=== PATIENT | male | born 1945 | race Caucasian/White ===

== ENCOUNTER 2018-11-05 02:02 | Inpatient (IN) | payer OTHER ==
[~2018-11-05] VITALS: Ht 182.9 cm; Wt 83.9 kg
[2018-11-05] MEDS ORDERED: CHOL10003 PO (02:23)
[2018-11-05] MEDS ORDERED: SODI650T PO (02:23)
[2018-11-05] MEDS ORDERED: FAMO10TA69 PO (02:23)
[2018-11-05] MEDS ORDERED: BACL10TA PO (02:23)
[2018-11-05] MEDS ORDERED: ASPI-612 PO (02:23)
[2018-11-05] MEDS ORDERED: CYAN10005 PO (02:23)
[2018-11-05] MEDS ORDERED: TRAM50TA PO (02:23)
[2018-11-05] MEDS ORDERED: HYDR20TA PO (02:23)
[2018-11-05] MEDS ORDERED: HYDR10TA66 PO (02:23)
[2018-11-05] MEDS ORDERED: POLY17PO5 PO (02:23)
[2018-11-05] MEDS ORDERED: NITR0.4T22 SL (02:23)
[2018-11-05] MEDS ORDERED: ACET500T68 PO (02:23)
[2018-11-05 03:27] VITALS: BP 146/68
[2018-11-05] MEDS ORDERED: METHYL SALICYLATE/MENTHOL TOPICAL OINTMENT 29GM TUBE. TP PRN (03:45)
[2018-11-05] MEDS ORDERED: ACETAMINOPHEN 325 MG TABLET PO PRN (03:45)
[2018-11-05] MEDS ORDERED: MAG HYDROX/AL HYDROX/SIMETH 30 ML ORAL.SUSP PO PRN (03:45)
[2018-11-05] MEDS ORDERED: MAGNESIUM HYDROXIDE 2,400 MG/30 ML ORAL.SUSP. PO PRN (03:45)
[2018-11-05] MEDS ORDERED: NITROGLYCERIN SUBLINGUAL 0.4 MG BOTTLE OF 25. SL PRN (04:15)
--- NOTE | 2018-11-05 04:28 | NUR ---
Admission Note with Justification for Admission to [facility] Patient admitted to [facility] for protective oversight for emergency stabilization of acute psychiatric crisis. Pt admitted from: [facility] ER Mode of arrival: EMS Accompanied By: EMS Precipitating behaviors that initiated intake and admission: Patient made SI statements that he was going to cut his throat with a piece of glass. Description of failure of out patient attempts at stabilization in previous setting list behavior and medication trials: Patient brought to ER Behaviors and assessment findings upon admission: Patient is calm and cooperative but very hard of hearing. The patient is alert and oriented to self, date, hospital and situation and is currently suicidal. The patient is currently sleeping in his room near the nurses station. Plan: Admit for protective oversight for adjustment and stabilization of medications, behaviors and mood. Intense treatment regimen including groups, medication adjustments, therapy, consistent regimen for ADL's, self care, and sleep hygiene. Daily monitoring by Inpatient staff, Psychiatry, and Medical Physician.
[2018-11-05 07:55] LABS: BASO # 0.1 x10^3/uL (0.0-0.2); BASO % 1 % (0-3); EOS # 0.3 x10^3/uL (0.0-0.7); EOS % 4 % (0-3); HEMATOCRIT 31.9 % (39.0-53.0); HEMOGLOBIN 10.8 g/dL (13.0-17.5); LYMPH # 3.9 x10^3/uL (1.0-4.8); LYMPH % 49 % (24-48); MEAN CORPUSCULAR HEMOGLOBIN 33 pg (25-35); MEAN CORPUSCULAR HGB CONC 34 g/dL (31-37); MEAN CORPUSCULAR VOLUME 96 fL (79-100); MONO # 0.7 x10^3/uL (0.0-1.1); MONO % 9 % (0-9); NEUT % 38 % (31-73); PLATELET COUNT 198 x10^3/uL (140-400); RED BLOOD COUNT 3.32 x10^6/uL (4.30-5.70); RED CELL DISTRIBUTION WIDTH 14.3 % (11.5-14.5); WHITE BLOOD COUNT 7.9 x10^3/uL (4.0-11.0)
[2018-11-05 08:25] LABS: ALBUMIN 3.1 g/dL (3.4-5.0); ALBUMIN/GLOBULIN RATIO 1.1 (1.0-1.7); CALCIUM 9.2 mg/dL (8.5-10.1); CREATININE 1.3 mg/dL (0.7-1.3); MAGNESIUM 2.1 mg/dL (1.8-2.4); POTASSIUM 3.6 mmol/L (3.5-5.1); TOTAL BILIRUBIN 0.4 mg/dL (0.2-1.0)
[2018-11-05] MEDS: CHOLECALCIFEROL (VITAMIN D3) 1,000 UNIT TABLET PO SCH (08:36)
[2018-11-05] MEDS: ACETAMINOPHEN 500 MG TABLET PO SCH ×3 (08:36→16:55)
[2018-11-05] MEDS: CYANOCOBALAMIN (VITAMIN B-12) 1,000 MCG TABLET. PO SCH (08:36)
[2018-11-05] MEDS: POLYETHYLENE GLYCOL 3350 17 GM PACKET. PO SCH (08:36)
[2018-11-05] MEDS: FAMOTIDINE 20 MG TABLET PO SCH (08:36)
[2018-11-05] MEDS: BACLOFEN 10 MG TABLET PO SCH ×3 (08:36→16:55)
[2018-11-05] MEDS: ASPIRIN ENTERIC COATED 81 MG TABLET.DR. PO SCH (08:36)
[2018-11-05] MEDS ORDERED: BACLOFEN 10 MG TABLET ONE ×3 (09:00)
[2018-11-05] MEDS: SODIUM BICARBONATE 650 MG TABLET PO SCH ×2 (09:12→20:14)
[2018-11-05] MEDS: HYDROCORTISONE 10 MG TABLET PO SCH ×2 (09:13→16:02)
[2018-11-05 13:17] LABS: THYROID STIM HORMONE (TSH) 1.254 uIU/mL (0.358-3.740)
--- NOTE | 2018-11-05 13:17 | NUR ---
Dakotah has [facility] Medicare replacement insurance. Call placed to [facility], spoke to Lorena Stevens, who indicated that it did not matter that [facility] was out of network. Lorena e-mailed an admission form for this worker to complete. This worker completed form after meeting with Dakotah. Faxed completed form back to Lorena for review. Lorena's direct phone number is [phone] ext [phone], fax is [phone]. Lorena indicated that the form will be reviewed and that this worker will be contacted with authorization and information about when next concurrent review is due. Call reference number is [id number]. Awaiting return phone call.
[2018-11-05 15:47] VITALS: BP 111/68
--- NOTE | 2018-11-05 16:12 | NUR ---
Received e-mail from Lorena at [facility] indicating that Dakotah is approved thru 11/09/18, next review due on 11/10/18. Authorization number is [id number].
--- NOTE | 2018-11-05 18:19 | NUR ---
Patient has been calm, cooperative, appropriate, and med-compliant. Patient is hard of hearing and hears better in his left ear. Pt has multiple small scabs on bilateral feet and ankles from wheelchair. Pt is not up-to-date on flu shot d/t allergy to immunization, per pt's DPOA. Pt has a hacking cough with scant phlegm production. Pt stated, "it takes a while to get the phlegm up."
--- NOTE | 2018-11-05 18:21 | NUR ---
Behavior Intervention Response and Plan: BIRP Note: Behavior: Assumed Care of patient, patient located in Patient Room at shift change. Patient exhibited the following behavior Calm, Compliant, Cooperative. Brief assessment on rounds of vital signs, medication needs, lab studies, and pain. Treatment plan problems: alteration in thought process and fall risk. Intervention: Patient assessed and the following interventions initiated safety checks 15 Minute Checks Cognitive Assessment , Head to toe Assessment , Medications. Response: After interactions and interventions patient responded in the following manner, Cooperative , Appropriate ,Calm. Continue to assess behaviors and condition will continue to monitor throughout the shift as needed. Patient educated on ADL's, and hand hygiene. Plan: Continue to monitor Master Treatment Plan for patient's progress toward short term goals of No harm To self/ others, Improved Mood, mcfp goals to return to previous living setting vs placement. Continue to assess patient for changes in above assessment. Monitor for medication needs, pain, and safety concerns. Hourly rounding performed to ensure safe environment.
[2018-11-05 19:07] LABS: THYROXINE 5.8 ug/dL (4.5-12.0)
--- NOTE | 2018-11-05 19:49 | HP ---
ADMIT DATE: 11/05/2018 PSYCHIATRIC ADMISSION HISTORY/EVALUATION This note covers elements not covered in my initial note of 11/05/2018. IDENTIFYING DATA: The patient is a 73-year-old male referred to us from [facility] from where he was referred to [facility] Emergency Room on account of voicing suicidal ideation with a plan to break off a light bulb and cut his throat. The patient reportedly had been increasingly depressed, somewhat more confused. The patient stated he has been depressed for some time because of his mother being . He has had prior suicidal ideation as well and according to the family, the patient has been depressed and had intermittent suicidal ideation for a long time. He was deemed to be dangerous at the facility, sent to the Emergency Room, felt to be a danger to himself there and then referred to us for inpatient psychiatric stabilization. CHIEF COMPLAINT: "I live at the [facility]. Yes, I had thoughts. Nothing to live for." HISTORY OF PRESENT ILLNESS: The patient has a history of major depressive disorder. This has been recurrent with intermittent suicidal ideation, reflective additionally of personality disorder. He has also had some short-term memory deficits. Suicidal ideation had become more intense recently with the plan noted above resulting in this referral. No clear history of bipolar disorder. Hospitalization was facilitated by Mary Copeland, his niece, who is his DPOA. PAST PSYCHIATRIC HISTORY: As above. MEDICAL HISTORY: Positive for muscle spasms, adrenocortical insufficiency, nicotine dependence. CODE STATUS: DNR. DIET: Regular. Ambulates in wheelchair. UA is negative. CURRENT PSYCHOTROPICS: Negative. FAMILY HISTORY: Noncontributory. SOCIAL HISTORY: No history of alcohol, drug abuse, physical, sexual or elder abuse history is noted. The patient resides at the [facility]. DRUG ALLERGIES: PENICILLIN AND ERYTHROMYCIN. REACTION TO HOSPITALIZATION: The patient accepting of it. ASSETS: Supportive family and niece, who is his DPOA. MENTAL STATUS EXAM: The patient was seen individually in the evening of 11/05/2018. Eye contact is fair. He is quite anxious, mood is depressed, anxious. Affect is mood congruent. Speech, low in volume, difficult to understand, rapid at times. He is fixated complaining of muscle spasm and backache, somewhat obsessive. No active plans to hurt himself as I questioned him closely this evening. Attention span is short. Language function intact. Intellect average. Insight fair. Judgment intact to standard questioning. LABORATORY DATA: Reviewed. IMPRESSION: Major depressive disorder, recurrent with suicidal ideation latter in partial remission; anxiety disorder, unspecified; cognitive disorder, unspecified. Rest as above. PLAN: Admit to Geropsychiatry Unit at [facility]. I will see the patient daily individually from a psychiatric standpoint, medical followup with Dr. Temple. Observe the patient's baseline. We will use trazodone 50 mg at bedtime p.r.n. insomnia, may repeat x 1 and start an antidepressant post baseline assessment. We will defer to Dr. Temple for the muscle spasms and back pain. He had been called by the nursing staff earlier in the morning, at night to review the patient's referral information for admission. MAN Kristine BOYER MD DR: UDAY/radha JOB#: [id number] / [id number]
[2018-11-05] MEDS ORDERED: traZODone 50 MG TABLET. PO PRN (20:30)
[2018-11-05] MEDS: traZODone 50 MG TABLET. PO SCH (20:47)
[2018-11-05] MEDS: CYCLOBENZAPRINE 10 MG TABLET. PO PRN (20:47)
--- NOTE | 2018-11-05 21:08 | NUR ---
Pt sitting up in w/c in the day room at shift change. Pt a/o, calm, and pleasant. Pt c/o back spasms and was given PRN Flexeril as ordered; pt also has c/o insomnia and reports that he takes something for this at his facility but is unable to recall the name of the medication. New order for Trazodone received from Dr. Gutierrez. Pt cooperative with assessment and compliant with medications.
--- NOTE | 2018-11-05 21:21 | CONS ---
DATE OF CONSULTATION: 11/05/2018 REASON FOR CONSULTATION: Medical management. HISTORY OF PRESENT ILLNESS: The patient is a 73-year-old male patient, a resident at [facility] who apparently presented to the Emergency Room of [facility] with suicidal ideation. He stated that when he was at his assisted living residence, he had suicidal thoughts of breaking light bulb and slitting his throat. He stated that his mother is and he wants to go and be with her. He denied having any suicidal ideation in the past; however, upon speaking with his employment law attorney, she states that he has had behavior like this in the past multiple times. He has threatened to commit suicide many times and has never acted out on his plans. He denied any plans. He was evaluated in the Emergency Room, was [facility] for inpatient psychiatric stabilization. He is very hard of hearing; however, when I questioned him, he denied any complaint. However, he continues to have the suicidal ideation and would like to slit his throat according to him. PAST MEDICAL HISTORY: Significant for Boone's disease, gastroesophageal reflux disease, anemia as well as chronic back pain. PAST SURGICAL HISTORY: Unremarkable. FAMILY HISTORY: Unremarkable. SOCIAL HISTORY: He is a resident at [facility]. ALLERGIES: He is allergic to PENICILLIN and ERYTHROMYCIN. MEDICATIONS: He is currently on baclofen 5 mg 3 times a day, nitroglycerin 0.4 mg sublingual every 5 minutes, aspirin 81 mg once a day, tramadol 50 mg every 6 hours, acetaminophen 1000 mg 3 times a day, sodium bicarbonate 650 mg twice a day. He is also on polyethylene glycol 17 g daily, famotidine 10 mg once a day, hydrocortisone 10 mg daily in the afternoon and hydrocortisone 20 mg in the morning for his Boone disease, cyanocobalamin 1000 mcg tablet once a day and vitamin D 2000 international units once a day. PHYSICAL EXAMINATION: GENERAL: When I saw him this afternoon, he was sitting comfortably in his wheelchair, in no apparent distress. He was somewhat pale, but no jaundice, cyanosis, or thyromegaly. No jugular venous distension. No lower limb edema. VITAL SIGNS: His heart rate was 82, blood pressure is 146/68, temperature was 97.5, respiratory rate 20, and oxygen saturation 100%. HEAD, EYES, EAR, NOSE, AND THROAT: Showed normocephalic, atraumatic. NECK: Supple. HEART: Showed normal first and second heart sounds. No gallop, rub or murmur. CHEST: Clear to auscultation. No crepitation or rhonchi. ABDOMEN: Slightly distended, soft, nontender. NEUROLOGIC: He is very hard of hearing, worse on the right than left. All other cranial nerves are intact. EXTREMITIES: He moves extremities without difficulty. Apparently, he is able to walk and sometimes for attention seeking, he uses his wheelchair. LABORATORY DATA: Showed a white cell count of 7900, hemoglobin 11, hematocrit 32, MCV 96, and platelet count of 198,000, but the manual differential showed that there is 38% neutrophils, 49% lymphocytes, 9% monocytes. His serum sodium was 143, potassium 3.6, chloride 107, bicarbonate 28, anion gap of 8, BUN 21, creatinine 1.3, estimated GFR was 54 mL per minute. His glucose was 84, calcium was 9.2, magnesium 2.1. Total bilirubin, AST, ALT, alkaline phosphatase were normal. Total protein was 6, albumin 3.1. ASSESSMENT AND PLAN: In summary, this is a 73-year-old male patient, a resident at [facility], who was seen initially at [facility] Emergency Room with suicidal ideation. He stated that he thought of breaking a light bulb and slitting his throat. Apparently, he has had this behavior before many times and never acted out on his plans. Medically, he is known to have gastroesophageal reflux disease, chronic back pain as well as Boone's disease. His vital signs and all his lab work seemed to be well within acceptable range. I would also obviously follow all the lab work that are still pending and make any necessary recommendation. He does have mild lymphocytosis the significance of which is not clear to me as his total white cell count is within normal range of 7900, although a leukemic leukemia can be also presented like that. Thank you, Dr. Gutierrez, for allowing me to participate in the care of this patient. FAVIOLA SZYMANSKI MD DR: JOSE/radha JOB#: [id number] / [id number]
--- NOTE | 2018-11-05 21:47 | PDOC ---
Exam Note: Barrera Note: Please also refer to the separate dictated note~for this date of service dictated separately.~Patient seen individually. Discussed the patient with Nursing staff reviewed the chart.~Reviewed interim history and current functioning. Reviewed vital signs,~Labs/ Radiology~and current medications noted below. Continue current treatment with the changes noted in the dictated addendum note Assessment: Vital Signs: Vital Signs Date Time Temp Pulse Resp B/P (MAP) Pulse Ox O2 Delivery O2 Flow Rate FiO2 11/05/18 15:47 97.2 72 18 111/68 (82) 96 Room Air Labs: Laboratory Tests Test 11/05/18 07:20 White Blood Count 7.9 x10^3/uL (4.0-11.0) Red Blood Count 3.32 x10^6/uL (4.30-5.70) L Hemoglobin 10.8 g/dL (13.0-17.5) L Hematocrit 31.9 % (39.0-53.0) L Mean Corpuscular Volume 96 fL (79-100) Mean Corpuscular Hemoglobin 33 pg (25-35) Mean Corpuscular Hemoglobin Concent 34 g/dL (31-37) Red Cell Distribution Width 14.3 % (11.5-14.5) Platelet Count 198 x10^3/uL (140-400) Neutrophils (%) (Auto) 38 % (31-73) Lymphocytes (%) (Auto) 49 % (24-48) H Monocytes (%) (Auto) 9 % (0-9) Eosinophils (%) (Auto) 4 % (0-3) H Basophils (%) (Auto) 1 % (0-3) Neutrophils # (Auto) 3.0 x10^3uL (1.8-7.7) Lymphocytes # (Auto) 3.9 x10^3/uL (1.0-4.8) Monocytes # (Auto) 0.7 x10^3/uL (0.0-1.1) Eosinophils # (Auto) 0.3 x10^3/uL (0.0-0.7) Basophils # (Auto) 0.1 x10^3/uL (0.0-0.2) Sodium Level 143 mmol/L (136-145) Potassium Level 3.6 mmol/L (3.5-5.1) Chloride Level 107 mmol/L (98-107) Carbon Dioxide Level 28 mmol/L (21-32) Anion Gap 8 (6-14) Blood Urea Nitrogen 21 mg/dL (8-26) Creatinine 1.3 mg/dL (0.7-1.3) Estimated GFR (Cockcroft-Gault) 54.0 BUN/Creatinine Ratio 16 (6-20) Glucose Level 84 mg/dL (70-99) Calcium Level 9.2 mg/dL (8.5-10.1) Magnesium Level 2.1 mg/dL (1.8-2.4) Iron Level 46 ug/dL (65-175) L Total Iron Binding Capacity 283 ug/dL (250-450) Iron Saturation 16 % (15-34) Total Bilirubin 0.4 mg/dL (0.2-1.0) Aspartate Amino Transferase (AST) 30 U/L (15-37) Alanine Aminotransferase (ALT) 39 U/L (16-63) Alkaline Phosphatase 56 U/L (46-116) Total Protein 6.0 g/dL (6.4-8.2) L Albumin 3.1 g/dL (3.4-5.0) L Albumin/Globulin Ratio 1.1 (1.0-1.7) Triglycerides Level 241 mg/dL (0-150) H Cholesterol Level 156 mg/dL (0-200) LDL Cholesterol, Calculated 63 mg/dL (0-100) VLDL Cholesterol, Calculated 48 mg/dL (0-40) H Non-HDL Cholesterol Calculated 111 mg/dL (0-129) HDL Cholesterol 45 mg/dL (40-60) Cholesterol/HDL Ratio 3.0 25-Hydroxy Vitamin D Total 32.4 ng/mL (30-100) Thyroid Stimulating Hormone (TSH) 1.254 uIU/mL (0.358-3.740) Thyroxine (T4) 5.8 ug/dL (4.5-12.0) Total Triiodothyronine (TT3) 108 ng/dL (71-180) Treponema pallidum Antibody Nonreactive (Nonreactive) Current Medications: Meds: Current Medications Acetaminophen (Tylenol) 650 mg PRN Q6HRS PRN PO PAIN / TEMP; Start 11/05/18 at 03:45; Status Cancel Multi-Ingredient Ointment (Analgesic [place]) 1 rambo PRN QID PRN TP MUSCLE PAIN; Start 11/05/18 at 03:45 Al Hydroxide/Mg Hydroxide (Mylanta Plus Xs) 15 ml PRN AFTMEALHC PRN PO DYSPEPSIA; Start 11/05/18 at 03:45 Magnesium Hydroxide (Milk Of Magnesia) 2,400 mg PRN QHS PRN PO CONSTIPATION; Start 11/05/18 at 03:45 Vitamin D (Vitamin D3) 2,000 unit DAILY PO Last administered on 11/05/18at 08:36 ; Start 11/05/18 at 09:00 Cyanocobalamin (Vitamin B-12) 1,000 mcg DAILY08 PO Last administered on at 08:36; Start 11/05/18 at 08:00 Nitroglycerin (Nitrostat) 0.4 mg PRN Q5MIN PRN SL CHEST PAIN; Start 11/05/18 at 04:15 Tramadol HCl (Ultram) 50 mg PRN Q6HRS PRN PO PAIN; Start 11/05/18 at 04:15 Acetaminophen (Tylenol) 1,000 mg TIDWMEALS PO Last administered on 11/05/18at 16: 55; Start 11/05/18 at 08:00 Aspirin (Aspirin Enteric Coated) 81 mg DAILYWBKFT PO Last administered on 08:36; Start 11/05/18 at 08:00 Baclofen (Lioresal) 5 mg TIDWMEALS PO Last administered on 11/05/18 16:55; Start 11/05/18 at 08:00 Famotidine (Pepcid) 20 mg DAILY PO Last administered on 11/05/18at 08:36; Start 11/05/18 at 09:00 Hydrocortisone (Cortef) 15 mg DAILY16 PO Last administered on 11/05/18 16:02; Start 11/05/18 at 16:00 Hydrocortisone (Cortef) 20 mg DAILYWBKFT PO Last administered on 11/05/18at 09:13 ; Start 11/05/18 at 08:00 Polyethylene Glycol (miraLAX) 17 gm DAILY08 PO Last administered on 11/05/18 08 :36; Start 11/05/18 at 08:00 Sodium Bicarbonate 650 mg BID PO Last administered on 11/05/18at 20:14; Start 11/05/18 at 09:00 Cyclobenzaprine HCl (Flexeril) 10 mg PRN TID PRN PO MUSCLE SPASMS Last administered on 11/05/18at 20:47; Start 11/05/18 at 20:15 Trazodone HCl (Desyrel) 50 mg QHS PO Last administered on 11/05/18at 20:47; Start 11/05/18 at 21:00 Trazodone HCl (Desyrel) 50 mg PRN QHS PRN PO INSOMNIA; Start 11/05/18 at 20:30 Active Scripts Active Reported Tramadol Hcl (Tramadol HCl) 50 Mg Tablet 50 Mg PO PRN Q6HRS PRN NITROGLYCERIN SubLingual (Nitroglycerin) 0.4 Mg Tab.subl 0.4 Mg SL PRN Q5MIN PRN Vitamin D3 (Cholecalciferol (Vitamin D3)) 1,000 Unit Tablet 2,000 Unit PO DAILY Vitamin B-12 (Cyanocobalamin (Vitamin B-12)) 1,000 Mcg Tablet 1,000 Mcg PO DAILY08 Sodium Bicarbonate 650 Mg Tablet 1 Tab PO BID Miralax (Polyethylene Glycol 3350) 17 Gm Powd.pack 17 Gm PO DAILY08 Hydrocortisone 20 Mg Tablet 20 Mg PO DAILY08 Hydrocortisone 10 Mg Tablet 15 Mg PO DAILY16 Famotidine 10 Mg Tablet 10 Mg PO DAILY Baclofen 10 Mg Tablet 5 Mg PO TID AT 04/20/2000 Acetaminophen 500 Mg Tablet 1,000 Mg PO TIDWMEALS Aspirin Ec (Aspirin) 81 Mg Tablet. 81 Mg PO DAILY I have reviewed the current psychotropics carefully including drug interactions. Risk benefit ratio favors no change other than as noted in my dictated progress note. Diagnosis: Problems: (1) Anxiety disorder (2) Mild cognitive impairment (3) Major depressive disorder, recurrent episode (4) Impulse control disorder RON BOYER MD Nov 05, 2018 21:47
[2018-11-05 23:07] LABS: HEMOGLOBIN A1C 5.4 % (4.8-5.6)
[2018-11-06 05:46] VITALS: BP 94/57
[2018-11-06] MEDS: ACETAMINOPHEN 500 MG TABLET PO SCH ×3 (08:44→17:07)
[2018-11-06] MEDS: POLYETHYLENE GLYCOL 3350 17 GM PACKET. PO SCH (08:44)
[2018-11-06] MEDS: HYDROCORTISONE 10 MG TABLET PO SCH ×2 (08:44→16:16)
[2018-11-06] MEDS: SODIUM BICARBONATE 650 MG TABLET PO SCH ×2 (08:44→19:10)
[2018-11-06] MEDS: BACLOFEN 10 MG TABLET PO SCH ×3 (08:44→17:07)
[2018-11-06] MEDS: CYANOCOBALAMIN (VITAMIN B-12) 1,000 MCG TABLET. PO SCH (08:44)
[2018-11-06] MEDS: FAMOTIDINE 20 MG TABLET PO SCH (08:44)
[2018-11-06] MEDS: CHOLECALCIFEROL (VITAMIN D3) 1,000 UNIT TABLET PO SCH (08:44)
[2018-11-06] MEDS: ASPIRIN ENTERIC COATED 81 MG TABLET.DR. PO SCH (08:44)
[2018-11-06] MEDS ORDERED: BACLOFEN 10 MG TABLET ONE ×3 (09:00)
[2018-11-06] MEDS: traMADol 50 MG TABLET PO PRN (10:55)
--- NOTE | 2018-11-06 13:21 | NUR ---
Patient was calm, cooperative, and appropriate for morning meds and assessment. Pt ate breakfast and lunch in dining room. At the end of lunch, pt was in dining room and started throwing up small portions mixed with larger volumes of saliva and mucus. Pt denied nausea, dizziness, and any stomach discomfort. Patient stated, "I don't feel good. I just need to go lie down in bed." Patient was transported to the east hallway in his wheelchair right outside the nurse's station windows to be observed for vomiting. Patient vomited small amounts of mucus two more times in the hallway. Pt's vital signs were BP 102/61, Temp 97.4, 100% O2, 84 HR, and 20 breaths/minute. Patient continued to deny feeling nauseous, dizzy, or having stomach discomfort. Patient was allowed to lie down in bed after not having vomited for 20 minutes. Patient's room is directly next to nurse's station with door open and pt can be observed continuously.
[2018-11-06] MEDS ORDERED: ONDANSETRON ODT 4 MG TAB.RAPDIS PO PRN (14:15)
[2018-11-06 15:31] VITALS: BP 140/81
--- NOTE | 2018-11-06 15:32 | RAD ---
Abdomen AP 11/06/2018. Reason for exam: Nausea and vomiting. Pain. Gas is seen mostly through the colon. There is no evidence of obstruction. There is moderate stool present. No abnormal masses or gas collections are seen. IMPRESSION: Moderate colonic stool. No apparent bowel obstruction. Electronically signed by: Celso Velasquez Jr., MD (11/06/2018 3:29 PM) [facility] [place]
[2018-11-06] MEDS: CYCLOBENZAPRINE 10 MG TABLET. PO PRN (16:16)
[2018-11-06] MEDS: traZODone 50 MG TABLET. PO SCH (19:10)
--- NOTE | 2018-11-06 21:49 | PDOC ---
Exam Note: Barrera Note: Please also refer to the separate dictated note~for this date of service dictated separately.~Patient seen individually. Discussed the patient with Nursing staff reviewed the chart.~Reviewed interim history and current functioning. Reviewed vital signs,~Labs/ Radiology~and current medications noted below. Continue current treatment with the changes noted in the dictated addendum note Assessment: Vital Signs: Vital Signs Date Time Temp Pulse Resp B/P (MAP) Pulse Ox O2 Delivery O2 Flow Rate FiO2 11/06/18 15:31 97.1 91 16 140/81 (100) 97.0 11/06/18 05:46 100 Room Air I&O Intake and Output 11/06/18 06:59 Intake Total 720 ml Balance 720 ml Intake Oral 720 ml Current Medications: Meds: Current Medications Acetaminophen (Tylenol) 650 mg PRN Q6HRS PRN PO PAIN / TEMP; Start 11/05/18 at 03:45; Status Cancel Multi-Ingredient Ointment (Analgesic [place]) 1 rambo PRN QID PRN TP MUSCLE PAIN; Start 11/05/18 at 03:45 Al Hydroxide/Mg Hydroxide (Mylanta Plus Xs) 15 ml PRN AFTMEALHC PRN PO DYSPEPSIA; Start 11/05/18 at 03:45 Magnesium Hydroxide (Milk Of Magnesia) 2,400 mg PRN QHS PRN PO CONSTIPATION; Start 11/05/18 at 03:45 Vitamin D (Vitamin D3) 2,000 unit DAILY PO Last administered on 11/06/18at 08:44 ; Start 11/05/18 at 09:00 Cyanocobalamin (Vitamin B-12) 1,000 mcg DAILY08 PO Last administered on at 08:44; Start 11/05/18 at 08:00 Nitroglycerin (Nitrostat) 0.4 mg PRN Q5MIN PRN SL CHEST PAIN; Start 11/05/18 at 04:15 Tramadol HCl (Ultram) 50 mg PRN Q6HRS PRN PO PAIN Last administered on at 10:55; Start 11/05/18 at 04:15 Acetaminophen (Tylenol) 1,000 mg TIDWMEALS PO Last administered on 11/06/18at 17: 07; Start 11/05/18 at 08:00 Aspirin (Aspirin Enteric Coated) 81 mg DAILYWBKFT PO Last administered on 08:44; Start 11/05/18 at 08:00 Baclofen (Lioresal) 5 mg TIDWMEALS PO Last administered on 11/06/18 17:07; Start 11/05/18 at 08:00 Famotidine (Pepcid) 20 mg DAILY PO Last administered on 11/06/18 08:44; Start 11/05/18 at 09:00 Hydrocortisone (Cortef) 15 mg DAILY16 PO Last administered on 11/06/18 16:16; Start 11/05/18 at 16:00 Hydrocortisone (Cortef) 20 mg DAILYWBKFT PO Last administered on 11/06/18 08:44 ; Start 11/05/18 at 08:00 Polyethylene Glycol (miraLAX) 17 gm DAILY08 PO Last administered on 11/06/18 08 :44; Start 11/05/18 at 08:00 Sodium Bicarbonate 650 mg BID PO Last administered on 11/06/18 19:10; Start 11/05/18 at 09:00 Cyclobenzaprine HCl (Flexeril) 10 mg PRN TID PRN PO MUSCLE SPASMS Last administered on 11/06/18 16:16; Start 11/05/18 at 20:15 Trazodone HCl (Desyrel) 50 mg QHS PO Last administered on 11/06/18 19:10; Start 11/05/18 at 21:00 Trazodone HCl (Desyrel) 50 mg PRN QHS PRN PO INSOMNIA; Start 11/05/18 at 20:30 Ondansetron HCl (Zofran Odt) 4 mg PRN Q4HRS PRN PO NAUSEA/VOMITING; Start at 14:15 Baclofen (Lioresal) 5 mg STK-MED ONCE .ROUTE ; Start 11/05/18 at 09:00; Stop 11/06 at 18:01; Status DC Baclofen (Lioresal) 5 mg STK-MED ONCE .ROUTE ; Start 11/05/18 at 09:00; Stop 11/06 at 18:01; Status DC Baclofen (Lioresal) 5 mg STK-MED ONCE .ROUTE ; Start 11/05/18 at 09:00; Stop 11/06 at 18:01; Status DC Baclofen (Lioresal) 5 mg STK-MED ONCE .ROUTE ; Start 11/06/18 at 09:00; Stop 11/06 at 18:02; Status DC Baclofen (Lioresal) 5 mg STK-MED ONCE .ROUTE ; Start 11/06/18 at 09:00; Stop 11/06 at 18:02; Status DC Baclofen (Lioresal) 5 mg STK-MED ONCE .ROUTE ; Start 11/06/18 at 09:00; Stop 11/06 at 18:02; Status DC Active Scripts Active Reported Tramadol Hcl (Tramadol HCl) 50 Mg Tablet 50 Mg PO PRN Q6HRS PRN NITROGLYCERIN SubLingual (Nitroglycerin) 0.4 Mg Tab.subl 0.4 Mg SL PRN Q5MIN PRN Vitamin D3 (Cholecalciferol (Vitamin D3)) 1,000 Unit Tablet 2,000 Unit PO DAILY Vitamin B-12 (Cyanocobalamin (Vitamin B-12)) 1,000 Mcg Tablet 1,000 Mcg PO DAILY08 Sodium Bicarbonate 650 Mg Tablet 1 Tab PO BID Miralax (Polyethylene Glycol 3350) 17 Gm Powd.pack 17 Gm PO DAILY08 Hydrocortisone 20 Mg Tablet 20 Mg PO DAILY08 Hydrocortisone 10 Mg Tablet 15 Mg PO DAILY16 Famotidine 10 Mg Tablet 10 Mg PO DAILY Baclofen 10 Mg Tablet 5 Mg PO TID AT 04/20/2000 Acetaminophen 500 Mg Tablet 1,000 Mg PO TIDWMEALS Aspirin Ec (Aspirin) 81 Mg Tablet. 81 Mg PO DAILY I have reviewed the current psychotropics carefully including drug interactions. Risk benefit ratio favors no change other than as noted in my dictated progress note. Diagnosis: Problems: (1) Anxiety disorder (2) Mild cognitive impairment (3) Major depressive disorder, recurrent episode (4) Impulse control disorder RON BOYER MD Nov 06, 2018 21:49
--- NOTE | 2018-11-06 21:50 | NUR ---
Pt sitting up in w/c in the hallway at shift change. Pt calm and pleasant; denies SI at this time. Pt cooperative with assessment and compliant with medications. Pt remains on a clear liquid diet at this time due to emesis after eating today.
[2018-11-07 06:03] VITALS: BP 96/53
[2018-11-07] MEDS: ASPIRIN ENTERIC COATED 81 MG TABLET.DR. PO SCH (07:33)
[2018-11-07] MEDS: ACETAMINOPHEN 500 MG TABLET PO SCH ×3 (07:33→17:35)
[2018-11-07] MEDS: HYDROCORTISONE 10 MG TABLET PO SCH ×2 (07:33→17:35)
[2018-11-07] MEDS: FAMOTIDINE 20 MG TABLET PO SCH (07:33)
[2018-11-07] MEDS: SODIUM BICARBONATE 650 MG TABLET PO SCH ×2 (07:33→20:56)
[2018-11-07] MEDS: CHOLECALCIFEROL (VITAMIN D3) 1,000 UNIT TABLET PO SCH (07:33)
[2018-11-07] MEDS: BACLOFEN 10 MG TABLET PO SCH ×3 (07:34→17:33)
[2018-11-07] MEDS: POLYETHYLENE GLYCOL 3350 17 GM PACKET. PO SCH (07:34)
[2018-11-07] MEDS: CYANOCOBALAMIN (VITAMIN B-12) 1,000 MCG TABLET. PO SCH (07:37)
[2018-11-07] MEDS: CYCLOBENZAPRINE 10 MG TABLET. PO PRN ×3 (07:37→21:00)
[2018-11-07] MEDS: traMADol 50 MG TABLET PO PRN ×3 (07:37→21:00)
[2018-11-07] MEDS: LIDOCAINE (700MG/PATCH) PATCH. TD SCH (14:42)
[2018-11-07 16:03] VITALS: BP 109/63
--- NOTE | 2018-11-07 18:05 | NUR ---
Behavior Intervention Response and Plan: BIRP Note: Behavior: Assumed Care of patient, patient located in Patient Room at shift change. Patient exhibited the following behavior Calm, Compliant, Interactive. Brief assessment on rounds of vital signs, medication needs, lab studies, and pain. Treatment plan problems: alteration in thought process and fall risk. Intervention: Patient assessed and the following interventions initiated safety checks 15 Minute Checks Cognitive Assessment , Head to toe Assessment , Medications. Response: After interactions and interventions patient responded in the following manner, Cooperative , Appropriate ,Calm. Continue to assess behaviors and condition will continue to monitor throughout the shift as needed. Patient educated on ADL's, and hand hygiene. Plan: Continue to monitor Master Treatment Plan for patient's progress toward short term goals of No harm To self/ others, Improved Mood, jail goals to return to previous living setting vs placement. Continue to assess patient for changes in above assessment. Monitor for medication needs, pain, and safety concerns. Hourly rounding performed to ensure safe environment.
[2018-11-07] MEDS: traZODone 50 MG TABLET. PO SCH (20:56)
[2018-11-07] MEDS: PATCH REMOVAL. MC SCH (21:00)
--- NOTE | 2018-11-07 22:35 | PDOC ---
Exam Note: Barrera Note: Please also refer to the separate dictated note~for this date of service dictated separately.~Patient seen individually. Discussed the patient with Nursing staff reviewed the chart.~Reviewed interim history and current functioning. Reviewed vital signs,~Labs/ Radiology~and current medications noted below. Continue current treatment with the changes noted in the dictated addendum note Assessment: Vital Signs: Vital Signs Date Time Temp Pulse Resp B/P (MAP) Pulse Ox O2 Delivery O2 Flow Rate FiO2 11/07/18 17:35 98 11/07/18 16:03 97.6 65 20 109/63 (78) 11/06/18 15:31 97.0 11/06/18 05:46 Room Air I&O Intake and Output 11/07/18 07:00 Intake Total 1080 ml Balance 1080 ml Intake Oral 1080 ml Current Medications: Meds: Current Medications Acetaminophen (Tylenol) 650 mg PRN Q6HRS PRN PO PAIN / TEMP; Start 11/05/18 at 03:45; Status Cancel Multi-Ingredient Ointment (Analgesic [place]) 1 rambo PRN QID PRN TP MUSCLE PAIN; Start 11/05/18 at 03:45 Al Hydroxide/Mg Hydroxide (Mylanta Plus Xs) 15 ml PRN AFTMEALHC PRN PO DYSPEPSIA; Start 11/05/18 at 03:45 Magnesium Hydroxide (Milk Of Magnesia) 2,400 mg PRN QHS PRN PO CONSTIPATION Last administered on 11/07/18at 21:05; Start 11/05/18 at 03:45 Vitamin D (Vitamin D3) 2,000 unit DAILY PO Last administered on 11/07/18 07:33 ; Start 11/05/18 at 09:00 Cyanocobalamin (Vitamin B-12) 1,000 mcg DAILY08 PO Last administered on 07:37; Start 11/05/18 at 08:00 Nitroglycerin (Nitrostat) 0.4 mg PRN Q5MIN PRN SL CHEST PAIN; Start 11/05/18 at 04:15 Tramadol HCl (Ultram) 50 mg PRN Q6HRS PRN PO PAIN Last administered on 21:00; Start 11/05/18 at 04:15 Acetaminophen (Tylenol) 1,000 mg TIDWMEALS PO Last administered on 3/3/19at 17: 35; Start 11/05/18 at 08:00 Aspirin (Aspirin Enteric Coated) 81 mg DAILYWBKFT PO Last administered on 07:33; Start 11/05/18 at 08:00 Baclofen (Lioresal) 5 mg TIDWMEALS PO Last administered on 11/07/18 17:33; Start 11/05/18 at 08:00 Famotidine (Pepcid) 20 mg DAILY PO Last administered on 11/07/18 07:33; Start 11/05/18 at 09:00 Hydrocortisone (Cortef) 15 mg DAILY16 PO Last administered on 11/07/18 17:35; Start 11/05/18 at 16:00 Hydrocortisone (Cortef) 20 mg DAILYWBKFT PO Last administered on 11/07/18 07:33 ; Start 11/05/18 at 08:00 Polyethylene Glycol (miraLAX) 17 gm DAILY08 PO Last administered on 11/07/18 07 :34; Start 11/05/18 at 08:00 Sodium Bicarbonate 650 mg BID PO Last administered on 11/07/18 20:56; Start 11/05/18 at 09:00 Cyclobenzaprine HCl (Flexeril) 10 mg PRN TID PRN PO MUSCLE SPASMS Last administered on 11/07/18 21:00; Start 11/05/18 at 20:15 Trazodone HCl (Desyrel) 50 mg QHS PO Last administered on 11/07/18 20:56; Start 11/05/18 at 21:00 Trazodone HCl (Desyrel) 50 mg PRN QHS PRN PO INSOMNIA; Start 11/05/18 at 20:30 Ondansetron HCl (Zofran Odt) 4 mg PRN Q4HRS PRN PO NAUSEA/VOMITING; Start at 14:15 Baclofen (Lioresal) 5 mg STK-MED ONCE .ROUTE ; Start 11/05/18 at 09:00; Stop 11/06 at 18:01; Status DC Baclofen (Lioresal) 5 mg STK-MED ONCE .ROUTE ; Start 11/05/18 at 09:00; Stop 11/06 at 18:01; Status DC Baclofen (Lioresal) 5 mg STK-MED ONCE .ROUTE ; Start 11/05/18 at 09:00; Stop 11/06 at 18:01; Status DC Baclofen (Lioresal) 5 mg STK-MED ONCE .ROUTE ; Start 11/06/18 at 09:00; Stop 11/06 at 18:02; Status DC Baclofen (Lioresal) 5 mg STK-MED ONCE .ROUTE ; Start 11/06/18 at 09:00; Stop 11/06 at 18:02; Status DC Baclofen (Lioresal) 5 mg STK-MED ONCE .ROUTE ; Start 11/06/18 at 09:00; Stop 11/06 at 18:02; Status DC Lidocaine (Lidoderm) 1 patch DAILY TD ; Start 11/08/18 at 09:00; Stop 11/08/18 at 09:00; Status DC Miscellaneous (Lidoderm Patch Removal) 1 ea QHS MC Last administered on at 21:00; Start 11/07/18 at 21:00 Lidocaine (Lidoderm) 1 patch DAILY TD Last administered on 11/07/18at 14:42; Start 11/07/18 at 14:30 Active Scripts Active Reported Tramadol Hcl (Tramadol HCl) 50 Mg Tablet 50 Mg PO PRN Q6HRS PRN NITROGLYCERIN SubLingual (Nitroglycerin) 0.4 Mg Tab.subl 0.4 Mg SL PRN Q5MIN PRN Vitamin D3 (Cholecalciferol (Vitamin D3)) 1,000 Unit Tablet 2,000 Unit PO DAILY Vitamin B-12 (Cyanocobalamin (Vitamin B-12)) 1,000 Mcg Tablet 1,000 Mcg PO DAILY08 Sodium Bicarbonate 650 Mg Tablet 1 Tab PO BID Miralax (Polyethylene Glycol 3350) 17 Gm Powd.pack 17 Gm PO DAILY08 Hydrocortisone 20 Mg Tablet 20 Mg PO DAILY08 Hydrocortisone 10 Mg Tablet 15 Mg PO DAILY16 Famotidine 10 Mg Tablet 10 Mg PO DAILY Baclofen 10 Mg Tablet 5 Mg PO TID AT 04/20/2000 Acetaminophen 500 Mg Tablet 1,000 Mg PO TIDWMEALS Aspirin Ec (Aspirin) 81 Mg Tablet.dr 81 Mg PO DAILY I have reviewed the current psychotropics carefully including drug interactions. Risk benefit ratio favors no change other than as noted in my dictated progress note. Diagnosis: Problems: (1) Anxiety disorder (2) Mild cognitive impairment (3) Major depressive disorder, recurrent episode (4) Impulse control disorder RON BOYER MD Nov 07, 2018 22:35
--- NOTE | 2018-11-07 23:00 | NUR ---
Patient requested PRN Ultram and PRN Flexerel at HS r/t pain, both given per doctor order. He also reported constipation, KUB of abdomen showed moderate colonic stool. PRN MOM given per order.
--- NOTE | 2018-11-08 00:22 | NUR ---
Patient will be NPO after midnight per radiology as he is scheduled for Barium swallow. Related to staff and posted sign on door.
--- NOTE | 2018-11-08 00:25 | NUR ---
Patient was compliant with medications. Medications taken whole with water. Patient had no problem swallowing medications. Nurse assisted patient to change into clean brief and pajama pants after an incontinent episode. Patient uses wheelchair for ambulation and can self transfer.
[2018-11-08 05:42] VITALS: BP 95/54
[2018-11-08] MEDS ORDERED: LIDOCAINE (700MG/PATCH) PATCH. TD SCH (09:00)
[2018-11-08] MEDS: ASPIRIN ENTERIC COATED 81 MG TABLET.DR. PO SCH (09:30)
[2018-11-08] MEDS: POLYETHYLENE GLYCOL 3350 17 GM PACKET. PO SCH (09:30)
[2018-11-08] MEDS: ACETAMINOPHEN 500 MG TABLET PO SCH ×3 (09:30→17:06)
[2018-11-08] MEDS: SODIUM BICARBONATE 650 MG TABLET PO SCH ×2 (09:30→19:44)
[2018-11-08] MEDS: LIDOCAINE (700MG/PATCH) PATCH. TD SCH (09:30)
[2018-11-08] MEDS: CYANOCOBALAMIN (VITAMIN B-12) 1,000 MCG TABLET. PO SCH (09:30)
[2018-11-08] MEDS: CHOLECALCIFEROL (VITAMIN D3) 1,000 UNIT TABLET PO SCH (09:31)
[2018-11-08] MEDS: traMADol 50 MG TABLET PO PRN (09:31)
[2018-11-08] MEDS: BACLOFEN 10 MG TABLET PO SCH ×3 (09:31→17:04)
[2018-11-08] MEDS: FAMOTIDINE 20 MG TABLET PO SCH (09:31)
[2018-11-08] MEDS: HYDROCORTISONE 10 MG TABLET PO SCH ×2 (09:32→17:04)
--- NOTE | 2018-11-08 09:37 | NUR ---
PSYCHOSOCIAL ASSESSMENT ADMISSION DATE: 11/05/18 CONTACT INFORMATION: DPOA/Guardian Contact Name: Shira Ramirez Contact Phone #: [phone] ETHNIC ORIGIN: REASONS FOR ADMISSION: Anxiety/Panic Grief Suicidal ideation ADDITIONAL ADMISSION COMMENTS: Dakotah expressed SI with plan to break a light bulb and cut throat on 11/04/18. REASON FOR ADMISSION IN PATIENT/FAMILY'S OWN WORDS: "I told them at [facility] that I was gonna commit suicide." PATIENT/FAMILY EXPECTATIONS FOR ADMISSION: When SW asked Dakotah his treatment expectations, he replied, "to be with my mom and sister Chelo." Both of these people are . LIVING SITUATION: Patient lives with: Assisted Living Other living arrangements: [facility] Contact Name: Anoop Contact Address: [address] [place] [address] Contact Phone #: [phone] Contact Fax #: [phone] FAMILY RELATIONS: Marital Status: Single # of Marriages: 0 # of Children: 0 [facility] Family Support: Cooperative Involved in DC Planning Additional Comments r/t Family: Dakotah reports strained relations with his two living sisters, Sindy (resides in [facility]) and Roseline(resides in [facility]). Dakotah reports he has not had contact with them in over a year. SIGNIFICANT PSYCHIATRIC/MEDICAL HISTORY: Psychiatric/Treatment History: Dakotah denies previous in patient or out patient psychiatric treatment. Pertinent Family History: Dakotah denies family history of mental illness or substance abuse. HISTORICAL DATA: Childhood Environment: [place] Supportive Comment: Dakotah was born and raised in [place]. His father was a packing house cleaner supervisor and when Dakotah was around [age] years of age. Dakotah's mother, Alayna, was a homemaker. Dakotah was the youngest child of five. He had one step sister, Chelo, from his mother's first marriage. Dakotah's mom was three times. Her first spouse was Mr. Sanchez, they . She then Peggy Edil. Peggy later . She later to Mr. Cotton, who Dakotah refers to as his step father. Dakotah attended school thru the 8th grade. He stated he was a slow learner and that he was kicked out of school as a result. Dakotah resided his entire life with his mother until she 22 years ago. After her passing, he moved in with his nephew. Dakotah's mother 22 years ago and Dakotah stated since her passing, he has felt "no sense for living." Psychological Abuse: None Additional Comments: Dakotah denies being abused or neglected. Drug Abuse History last 12 months: None Comment: Dakotah reported he quit smoking on 10/11/2017. He does not drink alcohol or use drugs. 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 Dakotah reports he worked until his mid 30's and then went on social security disability. He reports having chronic back pain. service: N [employer] background: Dakotah was raised Jewish. He reports being a member of [employer]. Dakotah's paulette is of high importance to him. Sexual orientation: Heterosexual Educational Level: Dakotah attended school thru the 8th grade. Past/Present Interests/Hobbies: Dakotah has enjoyed bowling, horseback riding, swimming, and dancing. Financial support/resources: [employer] Monthly income: $900.00 Person handling finances: Shira Ramirez Do you have a history of legal problems: No Cultural considerations: None reported. SOCIAL RELATIONSHIPS-CURRENT/PAST: Psychiatrist: None. PCP: Dr. Lisa Guadalupe-[phone] Counselor/Therapist: None. Veterans[facility] Administration: N/A Support Group: None Carbon Blocks Press Operator/Lifestyle Director: None Other relationships: Staff and fellow residents at [facility] STRENGTHS & WEAKNESSES: Patient's strengths: Able to express his needs to others Stable living arrangements Other patient strengths: Patient's weaknesses: Poor relationships- reports strained relations with his two living sisters Other patient weaknesses: Reports feelings of depression for past 22 years, since mother . PRELIMINARY PLAN OF TREATMENT: Preliminary plan: Decrease symptoms Depression Promote Coping Skill No suicidal ideation Medication Stabilization Monitor Med Effects Other preliminary treatment comments: Will encourage Dakotah to be involved in SW and recreational therapy groups while on the unit. DISCHARGE PLANNING: Discharge planning/disposition: Assisted Living Additional discharge needs identified: Dakotah will return to [facility] once stable. He shared, "They're good to me there." Dakotah will benefit from a referral for out patient psychiatry and counseling services. ADDITIONAL INFORMATION: Other Pertinent Data: Met with Dakotah on 11/05/18 to complete psychosocial assessment. Dakotah was alert and oriented to being in a hospital, and the year. He was confused to month and day of the week. Dakotah is able to express himself and basic needs verbally. His speech is garbled at times but he can typically make himself understood. He is hard of hearing and reports that he has a new hearing aid and glasses on order. HENNY will reach out to [facility] and invite to participate in team meeting. Addendum: 11/10/18 at 0951 by FADI INMAN RONEY reviewed and approves assessment.
--- NOTE | 2018-11-08 09:40 | RAD ---
Esophagram 11/08/2018 CLINICAL HISTORY: Dysphasia with solid food. TECHNIQUE: An esophagram was performed under fluoroscopic control. The total fluoroscopic time is 2 minutes. 7 digital spot radiographs were obtained. FINDINGS: Comparison is made to a CT scan of the abdomen dated 10/08/2018. 2 PA digital radiographs of the chest were obtained as jointer submarine cable. The cardiac silhouette is normal in size. The thoracic aorta is tortuous. Atherosclerotic calcification of the thoracic aorta is seen. Patchy left lower lobe atelectasis and/ or infiltrate is noted. No pneumothorax or pleural effusion is seen. Degenerative changes are seen involving the thoracic spine. The swallowing mechanism is within normal limits. The patient has severe esophageal dysmotility. There is a nonexistent primary stripping wave. Severe tertiary contractions of the esophagus are seen throughout. No mucosal abnormality of the esophagus is seen. No stricture is noted. The esophagus is not dilated. No abnormality of the GE junction is seen. There is a small sliding hiatal hernia. The patient was not evaluated for reflux. IMPRESSION: Severe esophageal dysmotility. Electronically signed by: Kamlehs Devlin MD (11/08/2018 9:37 AM) [id number]
--- NOTE | 2018-11-08 14:50 | NUR ---
ACTIVITY THERAPY ASSESSMENT Completed based on observation and interview with aaliyah due to being hard of hearing. Pt. was laying in bed with the blinds closed but was open talking to CLINICAL TRIAL MANAGER. He asked for her to turn the lights on. His speech was soft and difficult to understand at times but he was willing to repeat self when asked. He explained he is here to get. He wasn't sure if he was going to get transferred to [place] for his spasms. He was not ashamed to admit he was here for suicidal ideations. After his mother 23 years ago, there has been no point in living. He quickly listed activities he enjoyed: swimming, horseback riding, hiking, bowling, dancing. He wasn't interested in cards, TV or word searches. He is [employer] and has a rosary he brought with him. Pt. is often away from group and usually keeps to self. Initial goal aimed to increase engagement: Pt. will participate in at least two individual activities per week.
--- NOTE | 2018-11-08 15:51 | NUR ---
Dakotah accepted invite to SW afternoon group. Discussion was held on emotions and Dakotah spent time expressing his frustration around his relationship with his sister. He feels she is bossy and controlling. Dakotah indicated he has set limits with her and will go to his apartment when necessary to end conversation with her. Will continue to encourage Dakotah to participate in groups.
[2018-11-08 16:02] VITALS: BP 103/62
--- NOTE | 2018-11-08 18:47 | NUR ---
Behavior Intervention Response and Plan: BIRP Note: Behavior: Assumed Care of patient, patient located in Patient Room at shift change. Patient exhibited the following behavior Calm, Compliant, Interactive. Brief assessment on rounds of vital signs, medication needs, lab studies, and pain. Treatment plan problems: alteration in thought process and fall risk. Intervention: Patient assessed and the following interventions initiated safety checks 15 Minute Checks Cognitive Assessment , Head to toe Assessment , Medications. Response: After interactions and interventions patient responded in the following manner, Cooperative , Appropriate ,Calm. Continue to assess behaviors and condition will continue to monitor throughout the shift as needed. Patient educated on ADL's, and hand hygiene. Plan: Continue to monitor Master Treatment Plan for patient's progress toward short term goals of No harm To self/ others, Improved Mood, shelter goals to return to previous living setting vs placement. Continue to assess patient for changes in above assessment. Monitor for medication needs, pain, and safety concerns. Hourly rounding performed to ensure safe environment.
[2018-11-08] MEDS: traZODone 50 MG TABLET. PO SCH (19:44)
[2018-11-08] MEDS: PATCH REMOVAL. MC SCH (19:45)
--- NOTE | 2018-11-08 20:17 | PN ---
DATE: 11/06/2018 PSYCHIATRIC PROGRESS NOTE This late entry, 11/06/2018 covers elements not covered in my initial note. SUBJECTIVE: I met with the patient in the evening. The patient slept 6-1/2 hours previous night. He denies active suicidal ideation. He has been vomiting after lunch and in the evening on a clear liquid diet. We will defer to Dr. Temple. REVIEW OF SYSTEMS: Ambulation impaired, in wheelchair. No CV, , pulmonary, eye system symptoms on review other than above GI symptoms. MENTAL STATUS EXAM: Oriented to himself and situation. Speech has some latency, coherent, rapid and anxious, distractable. Abstraction fair, computation impaired, language function intact. Mood and affect still somewhat depressed, anxious. LABORATORY DATA: Reviewed. IMPRESSION: Unchanged from initial note. PLAN: No change from initial note. He remains on trazodone. We may consider adding an SSRI for his mood symptoms. MAN Kristine BOYER MD DR: UDAY/radha JOB#: [id number] / [id number]
--- NOTE | 2018-11-08 20:26 | PN ---
DATE: 11/07/2018 PSYCHIATRIC PROGRESS NOTE This late entry 11/07/2018 covers elements not covered in my initial note. SUBJECTIVE: I met with the patient in the evening. The patient slept 5-1/4 hours previous night. He remains on a clear liquid diet, is awaiting esophageal dilatation. We will defer to Dr. Temple. Barium swallow is being done on 11/08/2018. REVIEW OF SYSTEMS: Positive for difficulty with the swallowing, ongoing anxiety. Impaired ambulation, in wheelchair. No CV, , pulmonary, eye system symptoms on review. MENTAL STATUS EXAM: Oriented to himself and situation. Speech coherent, rapid at times, quite distractible, abstraction fair, computation impaired, language function intact, attention span short. Mood and affect remains labile, anxious. LABORATORY DATA: Reviewed. IMPRESSION: Unchanged from initial note. PLAN: Continue current psychotropics. Consider adding Prozac for his mood and anxiety symptoms and some obsessive somatic preoccupations. MAN Kristine BOYER MD DR: UDAY/radha JOB#: [id number] / [id number]
--- NOTE | 2018-11-08 22:30 | PDOC ---
Exam Note: Barrera Note: Please also refer to the separate dictated note~for this date of service dictated separately.~Patient seen individually. Discussed the patient with Nursing staff reviewed the chart.~Reviewed interim history and current functioning. Reviewed vital signs,~Labs/ Radiology~and current medications noted below. Continue current treatment with the changes noted in the dictated addendum note Assessment: Vital Signs: Vital Signs Date Time Temp Pulse Resp B/P (MAP) Pulse Ox O2 Delivery O2 Flow Rate FiO2 11/08/18 16:02 98.1 79 18 103/62 (76) 99 11/06/18 15:31 97.0 11/06/18 05:46 Room Air I&O Intake and Output 11/08/18 07:00 Intake Total 1880 ml Balance 1880 ml Intake Oral 1880 ml Current Medications: Meds: Current Medications Acetaminophen (Tylenol) 650 mg PRN Q6HRS PRN PO PAIN / TEMP; Start 11/05/18 at 03:45; Status Cancel Multi-Ingredient Ointment (Analgesic [place]) 1 rambo PRN QID PRN TP MUSCLE PAIN; Start 11/05/18 at 03:45 Al Hydroxide/Mg Hydroxide (Mylanta Plus Xs) 15 ml PRN AFTMEALHC PRN PO DYSPEPSIA; Start 11/05/18 at 03:45 Magnesium Hydroxide (Milk Of Magnesia) 2,400 mg PRN QHS PRN PO CONSTIPATION Last administered on 11/07/18at 21:05; Start 11/05/18 at 03:45 Vitamin D (Vitamin D3) 2,000 unit DAILY PO Last administered on 11/08/18 09:31 ; Start 11/05/18 at 09:00 Cyanocobalamin (Vitamin B-12) 1,000 mcg DAILY08 PO Last administered on 09:30; Start 11/05/18 at 08:00 Nitroglycerin (Nitrostat) 0.4 mg PRN Q5MIN PRN SL CHEST PAIN; Start 11/05/18 at 04:15 Tramadol HCl (Ultram) 50 mg PRN Q6HRS PRN PO PAIN Last administered on 09:31; Start 11/05/18 at 04:15 Acetaminophen (Tylenol) 1,000 mg TIDWMEALS PO Last administered on 11/08/18 17: 06; Start 11/05/18 at 08:00 Aspirin (Aspirin Enteric Coated) 81 mg DAILYWBKFT PO Last administered on 09:30; Start 11/05/18 at 08:00 Baclofen (Lioresal) 5 mg TIDWMEALS PO Last administered on 11/08/18 17:04; Start 11/05/18 at 08:00 Famotidine (Pepcid) 20 mg DAILY PO Last administered on 11/08/18 09:31; Start 11/05/18 at 09:00 Hydrocortisone (Cortef) 15 mg DAILY16 PO Last administered on 11/08/18 17:04; Start 11/05/18 at 16:00 Hydrocortisone (Cortef) 20 mg DAILYWBKFT PO Last administered on 11/08/18 09:32 ; Start 11/05/18 at 08:00 Polyethylene Glycol (miraLAX) 17 gm DAILY08 PO Last administered on 11/08/18 09 :30; Start 11/05/18 at 08:00 Sodium Bicarbonate 650 mg BID PO Last administered on 11/08/18 19:44; Start 11/05/18 at 09:00 Cyclobenzaprine HCl (Flexeril) 10 mg PRN TID PRN PO MUSCLE SPASMS Last administered on 11/07/18 21:00; Start 11/05/18 at 20:15 Trazodone HCl (Desyrel) 50 mg QHS PO Last administered on 11/08/18 19:44; Start 11/05/18 at 21:00 Trazodone HCl (Desyrel) 50 mg PRN QHS PRN PO INSOMNIA; Start 11/05/18 at 20:30 Ondansetron HCl (Zofran Odt) 4 mg PRN Q4HRS PRN PO NAUSEA/VOMITING; Start at 14:15 Baclofen (Lioresal) 5 mg STK-MED ONCE .ROUTE ; Start 11/05/18 at 09:00; Stop 11/06 at 18:01; Status DC Baclofen (Lioresal) 5 mg STK-MED ONCE .ROUTE ; Start 11/05/18 at 09:00; Stop 11/06 at 18:01; Status DC Baclofen (Lioresal) 5 mg STK-MED ONCE .ROUTE ; Start 11/05/18 at 09:00; Stop 11/06 at 18:01; Status DC Baclofen (Lioresal) 5 mg STK-MED ONCE .ROUTE ; Start 11/06/18 at 09:00; Stop 11/06 at 18:02; Status DC Baclofen (Lioresal) 5 mg STK-MED ONCE .ROUTE ; Start 11/06/18 at 09:00; Stop 11/06 at 18:02; Status DC Baclofen (Lioresal) 5 mg STK-MED ONCE .ROUTE ; Start 11/06/18 at 09:00; Stop 11/06 at 18:02; Status DC Lidocaine (Lidoderm) 1 patch DAILY TD ; Start 11/08/18 at 09:00; Stop 11/08/18 at 09:00; Status DC Miscellaneous (Lidoderm Patch Removal) 1 ea QHS MC Last administered on at 19:45; Start 11/07/18 at 21:00 Lidocaine (Lidoderm) 1 patch DAILY TD Last administered on 11/08/18at 09:30; Start 11/07/18 at 14:30 Fluoxetine HCl (PROzac) 10 mg DAILY PO ; Start 11/09/18 at 09:00 Active Scripts Active Reported Tramadol Hcl (Tramadol HCl) 50 Mg Tablet 50 Mg PO PRN Q6HRS PRN NITROGLYCERIN SubLingual (Nitroglycerin) 0.4 Mg Tab.subl 0.4 Mg SL PRN Q5MIN PRN Vitamin D3 (Cholecalciferol (Vitamin D3)) 1,000 Unit Tablet 2,000 Unit PO DAILY Vitamin B-12 (Cyanocobalamin (Vitamin B-12)) 1,000 Mcg Tablet 1,000 Mcg PO DAILY08 Sodium Bicarbonate 650 Mg Tablet 1 Tab PO BID Miralax (Polyethylene Glycol 3350) 17 Gm Powd.pack 17 Gm PO DAILY08 Hydrocortisone 20 Mg Tablet 20 Mg PO DAILY08 Hydrocortisone 10 Mg Tablet 15 Mg PO DAILY16 Famotidine 10 Mg Tablet 10 Mg PO DAILY Baclofen 10 Mg Tablet 5 Mg PO TID AT 04/20/2000 Acetaminophen 500 Mg Tablet 1,000 Mg PO TIDWMEALS Aspirin Ec (Aspirin) 81 Mg Tablet.dr 81 Mg PO DAILY I have reviewed the current psychotropics carefully including drug interactions. Risk benefit ratio favors no change other than as noted in my dictated progress note. Diagnosis: Problems: (1) Anxiety disorder (2) Mild cognitive impairment (3) Major depressive disorder, recurrent episode (4) Impulse control disorder RON BOYER MD Nov 08, 2018 22:30
--- NOTE | 2018-11-08 23:13 | NUR ---
Pt sitting up in w/c in the hallway at shift change. Pt calm and pleasant; denies SI at this time. Pt cooperative with assessment and compliant with medications. Pt diet changed to puree due to results of barium study.
[2018-11-09 05:47] VITALS: BP 100/65
[2018-11-09] MEDS ORDERED: FLUoxetine HCL 10 MG CAPSULE PO SCH (09:00)
[2018-11-09] MEDS: CYANOCOBALAMIN (VITAMIN B-12) 1,000 MCG TABLET. PO SCH (09:06)
[2018-11-09] MEDS: CHOLECALCIFEROL (VITAMIN D3) 1,000 UNIT TABLET PO SCH (09:06)
[2018-11-09] MEDS: BACLOFEN 10 MG TABLET PO SCH ×3 (09:06→17:02)
[2018-11-09] MEDS: HYDROCORTISONE 10 MG TABLET PO SCH ×2 (09:07→17:02)
[2018-11-09] MEDS: SODIUM BICARBONATE 650 MG TABLET PO SCH ×2 (09:07→20:31)
[2018-11-09] MEDS: ACETAMINOPHEN 500 MG TABLET PO SCH ×3 (09:07→17:03)
[2018-11-09] MEDS: POLYETHYLENE GLYCOL 3350 17 GM PACKET. PO SCH (09:07)
[2018-11-09] MEDS: FAMOTIDINE 20 MG TABLET PO SCH (09:07)
[2018-11-09] MEDS: ASPIRIN ENTERIC COATED 81 MG TABLET.DR. PO SCH (09:07)
[2018-11-09] MEDS: LIDOCAINE (700MG/PATCH) PATCH. TD SCH (09:08)
--- NOTE | 2018-11-09 10:22 | NUR ---
Call placed to bimal Frnak/AIDEN, who will be involved in treatment team on 11/11/18. Dakotah has been living at [facility] since 07/2018 and plans to return there once stable. Returned phone call to Juana, Behavioral Health barrel drainer with [facility], at [phone] ext [phone]. Request made to Juana for assistance to establish out patient psychiatry and counseling support for when Dakotah returns to [facility]. Juana is going to look into medication management and correctional counselor/case manager supports thru [facility] and a counselor that could come and see Dakotah at his apartment. Awaiting return phone call from Juana.
--- NOTE | 2018-11-09 14:24 | NUR ---
Nursing Note: Soon after breakfast, pt came to nurses station upset d/t roommate being in his bed again. Pt quickly calmed when he saw that staff was being called to take care of the issue. Pt compliant w/ medications taken whole, Lidocaine patch administered to his lower back. Pt reported that he does not like to complain about his pain because he feels that he is "suffering for the Lord." Informed pt that he was receiving medications to help with his pain, and he had no issue with taking scheduled medications. Pt denied SI. Withdrawn to his room. Encouraged pt to spend time in the day room and to participate in groups to help with his mood.
[2018-11-09 16:18] VITALS: BP 97/64
--- NOTE | 2018-11-09 17:00 | PN ---
DATE: 11/08/2018 PSYCHIATRIC PROGRESS NOTE This late entry 11/08/2018 covers elements not covered in my initial note. SUBJECTIVE: I met with the patient in the evening. The patient slept 5-1/4 hours previous night. He remains somewhat anxious, withdrawn, somewhat obsessive and ruminative as well. He is having his GI workup with swallowing, problems defer to Dr. Temple. REVIEW OF SYSTEMS: Other than this, ambulation impaired, in wheelchair. No CV, , pulmonary, eye system symptoms on review. Anxious, restless as I met with him in his room. MENTAL STATUS EXAM: The patient is oriented to himself and situation. Speech coherent, rapid at times. Abstraction fair, computation impaired, language function intact, attention span short. Mood and affect remain somewhat anxious, labile. LABORATORY DATA: Reviewed. IMPRESSION: Unchanged from initial note. PLAN: Start Prozac 10 mg a day for his mood and anxiety, obsessive thought processes. Rest unchanged per initial note. MAN Kristine BOYER MD DR: UDAY/radha JOB#: [id number] / [id number]
[2018-11-09] MEDS: CYCLOBENZAPRINE 10 MG TABLET. PO PRN (20:29)
[2018-11-09] MEDS: traMADol 50 MG TABLET PO PRN (20:30)
[2018-11-09] MEDS: traZODone 50 MG TABLET. PO SCH (20:31)
[2018-11-09] MEDS: PATCH REMOVAL. MC SCH (20:31)
--- NOTE | 2018-11-09 22:03 | PDOC ---
Exam Note: Barrera Note: Please also refer to the separate dictated note~for this date of service dictated separately.~Patient seen individually. Discussed the patient with Nursing staff reviewed the chart.~Reviewed interim history and current functioning. Reviewed vital signs,~Labs/ Radiology~and current medications noted below. Continue current treatment with the changes noted in the dictated addendum note Assessment: Vital Signs: Vital Signs Date Time Temp Pulse Resp B/P (MAP) Pulse Ox O2 Delivery O2 Flow Rate FiO2 11/09/18 21:30 18 97 11/09/18 16:18 98.1 88 97/64 (75) Room Air 11/06/18 15:31 97.0 I&O Intake and Output 11/09/18 06:59 Intake Total 840 ml Balance 840 ml Intake Oral 840 ml # Bowel Movements 1 Current Medications: Meds: Current Medications Acetaminophen (Tylenol) 650 mg PRN Q6HRS PRN PO PAIN / TEMP; Start 11/05/18 at 03:45; Status Cancel Multi-Ingredient Ointment (Analgesic [place]) 1 rambo PRN QID PRN TP MUSCLE PAIN; Start 11/05/18 at 03:45 Al Hydroxide/Mg Hydroxide (Mylanta Plus Xs) 15 ml PRN AFTMEALHC PRN PO DYSPEPSIA; Start 11/05/18 at 03:45 Magnesium Hydroxide (Milk Of Magnesia) 2,400 mg PRN QHS PRN PO CONSTIPATION Last administered on 11/07/18at 21:05; Start 11/05/18 at 03:45 Vitamin D (Vitamin D3) 2,000 unit DAILY PO Last administered on 11/09/18at 09:06 ; Start 11/05/18 at 09:00 Cyanocobalamin (Vitamin B-12) 1,000 mcg DAILY08 PO Last administered on 09:06; Start 11/05/18 at 08:00 Nitroglycerin (Nitrostat) 0.4 mg PRN Q5MIN PRN SL CHEST PAIN; Start 11/05/18 at 04:15 Tramadol HCl (Ultram) 50 mg PRN Q6HRS PRN PO PAIN Last administered on at 20:30; Start 11/05/18 at 04:15 Acetaminophen (Tylenol) 1,000 mg TIDWMEALS PO Last administered on 3/5/19at 17: 03; Start 11/05/18 at 08:00 Aspirin (Aspirin Enteric Coated) 81 mg DAILYWBKFT PO Last administered on 09:07; Start 11/05/18 at 08:00 Baclofen (Lioresal) 5 mg TIDWMEALS PO Last administered on 11/09/18 17:02; Start 11/05/18 at 08:00 Famotidine (Pepcid) 20 mg DAILY PO Last administered on 11/09/18 09:07; Start 11/05/18 at 09:00 Hydrocortisone (Cortef) 15 mg DAILY16 PO Last administered on 11/09/18 17:02; Start 11/05/18 at 16:00 Hydrocortisone (Cortef) 20 mg DAILYWBKFT PO Last administered on 11/09/18 09:07 ; Start 11/05/18 at 08:00 Polyethylene Glycol (miraLAX) 17 gm DAILY08 PO Last administered on 11/09/18 09 :07; Start 11/05/18 at 08:00 Sodium Bicarbonate 650 mg BID PO Last administered on 11/09/18 20:31; Start 11/05/18 at 09:00 Cyclobenzaprine HCl (Flexeril) 10 mg PRN TID PRN PO MUSCLE SPASMS Last administered on 11/09/18 20:29; Start 11/05/18 at 20:15 Trazodone HCl (Desyrel) 50 mg QHS PO Last administered on 11/09/18 20:31; Start 11/05/18 at 21:00 Trazodone HCl (Desyrel) 50 mg PRN QHS PRN PO INSOMNIA; Start 11/05/18 at 20:30 Ondansetron HCl (Zofran Odt) 4 mg PRN Q4HRS PRN PO NAUSEA/VOMITING; Start at 14:15 Baclofen (Lioresal) 5 mg STK-MED ONCE .ROUTE ; Start 11/05/18 at 09:00; Stop 11/06 at 18:01; Status DC Baclofen (Lioresal) 5 mg STK-MED ONCE .ROUTE ; Start 11/05/18 at 09:00; Stop 11/06 at 18:01; Status DC Baclofen (Lioresal) 5 mg STK-MED ONCE .ROUTE ; Start 11/05/18 at 09:00; Stop 11/06 at 18:01; Status DC Baclofen (Lioresal) 5 mg STK-MED ONCE .ROUTE ; Start 11/06/18 at 09:00; Stop 11/06 at 18:02; Status DC Baclofen (Lioresal) 5 mg STK-MED ONCE .ROUTE ; Start 11/06/18 at 09:00; Stop 11/06 at 18:02; Status DC Baclofen (Lioresal) 5 mg STK-MED ONCE .ROUTE ; Start 11/06/18 at 09:00; Stop 11/06 at 18:02; Status DC Lidocaine (Lidoderm) 1 patch DAILY TD ; Start 11/08/18 at 09:00; Stop 11/08/18 at 09:00; Status DC Miscellaneous (Lidoderm Patch Removal) 1 ea QHS MC Last administered on at 20:31; Start 11/07/18 at 21:00 Lidocaine (Lidoderm) 1 patch DAILY TD Last administered on 11/09/18at 09:08; Start 11/07/18 at 14:30 Fluoxetine HCl (PROzac) 10 mg DAILY PO Last administered on 11/09/18at 09:10; Start 11/09/18 at 09:00; Stop 11/09/18 at 16:56; Status DC Duloxetine HCl (Cymbalta) 30 mg DAILY PO ; Start 11/10/18 at 09:00 Active Scripts Active Reported Tramadol Hcl (Tramadol HCl) 50 Mg Tablet 50 Mg PO PRN Q6HRS PRN NITROGLYCERIN SubLingual (Nitroglycerin) 0.4 Mg Tab.subl 0.4 Mg SL PRN Q5MIN PRN Vitamin D3 (Cholecalciferol (Vitamin D3)) 1,000 Unit Tablet 2,000 Unit PO DAILY Vitamin B-12 (Cyanocobalamin (Vitamin B-12)) 1,000 Mcg Tablet 1,000 Mcg PO DAILY08 Sodium Bicarbonate 650 Mg Tablet 1 Tab PO BID Miralax (Polyethylene Glycol 3350) 17 Gm Powd.pack 17 Gm PO DAILY08 Hydrocortisone 20 Mg Tablet 20 Mg PO DAILY08 Hydrocortisone 10 Mg Tablet 15 Mg PO DAILY16 Famotidine 10 Mg Tablet 10 Mg PO DAILY Baclofen 10 Mg Tablet 5 Mg PO TID AT 04/20/2000 Acetaminophen 500 Mg Tablet 1,000 Mg PO TIDWMEALS Aspirin Ec (Aspirin) 81 Mg Tablet. 81 Mg PO DAILY I have reviewed the current psychotropics carefully including drug interactions. Risk benefit ratio favors no change other than as noted in my dictated progress note. Diagnosis: Problems: (1) Anxiety disorder (2) Mild cognitive impairment (3) Major depressive disorder, recurrent episode (4) Impulse control disorder RON BOYER MD Nov 09, 2018 22:03
--- NOTE | 2018-11-09 22:47 | NUR ---
Behavior Intervention Response and Plan: BIRP Note: Behavior: Assumed Care of patient, patient located in Hallway at shift change. Patient exhibited the following behavior Calm, Interactive, Able to Focus on Task. Brief assessment on rounds of vital signs, medication needs, lab studies, and pain. Treatment plan problems . Intervention: Patient assessed and the following interventions initiated safety checks 15 Minute Checks Head to toe Assessment , Cognitive Assessment , Medications. Response: After interactions and interventions patient responded in the following manner, Withdrawn , Compliant ,Cooperative. Continue to assess behaviors and condition will continue to monitor throughout the shift as needed. Patient educated on ADL's, and hand hygiene. Plan: Continue to monitor Master Treatment Plan for patient's progress toward short term goals of Improved Mood, Decreased Agitation, alf goals to return to previous living setting vs placement. Continue to assess patient for changes in above assessment. Monitor for medication needs, pain, and safety concerns. Hourly rounding performed to ensure safe environment.
[2018-11-10 05:41] VITALS: BP 109/70
--- NOTE | 2018-11-10 09:23 | NUR ---
Call placed to Stephania at [facility] with intent to complete concurrent review. Left detailed message with request for return phone call. Awaiting return call.
[2018-11-10] MEDS: ASPIRIN ENTERIC COATED 81 MG TABLET.DR. PO SCH (10:31)
[2018-11-10] MEDS: CHOLECALCIFEROL (VITAMIN D3) 1,000 UNIT TABLET PO SCH (10:31)
[2018-11-10] MEDS: DULoxetine HCL 30 MG CAPSULE.DR PO SCH (10:31)
[2018-11-10] MEDS: CYANOCOBALAMIN (VITAMIN B-12) 1,000 MCG TABLET. PO SCH (10:32)
[2018-11-10] MEDS: BACLOFEN 10 MG TABLET PO SCH ×3 (10:32→16:15)
[2018-11-10] MEDS: FAMOTIDINE 20 MG TABLET PO SCH (10:32)
[2018-11-10] MEDS: ACETAMINOPHEN 500 MG TABLET PO SCH ×3 (10:32→16:15)
[2018-11-10] MEDS: POLYETHYLENE GLYCOL 3350 17 GM PACKET. PO SCH (10:32)
[2018-11-10] MEDS: LIDOCAINE (700MG/PATCH) PATCH. TD SCH (10:34)
[2018-11-10] MEDS: SODIUM BICARBONATE 650 MG TABLET PO SCH ×2 (10:35→19:43)
[2018-11-10] MEDS: HYDROCORTISONE 10 MG TABLET PO SCH ×2 (10:35→16:13)
--- NOTE | 2018-11-10 13:44 | NUR ---
Concurrent review completed with Stephania from [facility]. Dakotah is authorized for additional coverage thru 11/11/18, next review due on 11/12/18. Auth number is [id number].
--- NOTE | 2018-11-10 14:43 | EKG ---
[address] [address] Test Date: 2018-11-05 Test Time: 10:08:07 Pat Name: ELVIA HUMPHRIES Department: Room: [address] [place] [address] Gender: Forklift Technician: : 1945 Requested By: RON BOYER Order Number: [id number] Reading MD: Omero Okeefe MD Measurements Intervals [place] Rate: P: [place]: QRS: QRSD: T: QT: QTc: Interpretive Statements PROBABLE ATRIAL FIBRILLATION NON-SPECIFIC ST/T CHANGES Electronically Signed On 11-11-2018 11:36:25 TICKET COUNTER by Omero Okeefe MD
--- NOTE | 2018-11-10 15:21 | NUR ---
Nursing Note: Pt calm, compliant w/ medications whole, withdrawn to his room until after lunch. Pt in day room after lunch, sitting at table w/ peers. Denies SI.
[2018-11-10 16:13] VITALS: BP 97/61
[2018-11-10] MEDS: PATCH REMOVAL. MC SCH (16:20)
[2018-11-10] MEDS: traZODone 50 MG TABLET. PO SCH (19:43)
--- NOTE | 2018-11-10 19:44 | PN ---
DATE: 11/09/2018 PSYCHIATRIC PROGRESS NOTE This late entry 11/09/2018 covers elements not covered in my initial note. SUBJECTIVE: I met with the patient in the evening in his room at length. He is somewhat withdrawn. He is hard of hearing, I had to talk loudly into his ear. He is upset after breakfast. He slept 5-1/2 hours previous evening. He was upset with another patient, who is quite intrusive and psychotic. He does also complain of back pain, impaired ambulation. Stated the patch on his back was helpful. REVIEW OF SYSTEMS: As above. No CV, , pulmonary, eye system symptoms on review. MENTAL STATUS EXAM: Oriented to himself and situation. Speech is coherent, somewhat high-pitched, typical for him. Abstraction fair, computation impaired, language function intact, attention span short. Mood and affect still depressed, anxious, somewhat obsessive. LABORATORY DATA: Reviewed. IMPRESSION: Major depressive disorder, recurrent. PLAN: Given the patient's chronic back pain, we will go ahead and change the Prozac 10 mg a day to Cymbalta 30 mg a day. Cymbalta should help with the pain as well. Maintain trazodone 50 mg at bedtime p.r.n., may repeat x 1. Continue rest unchanged. May need to increase Cymbalta gradually. MAN Kristine BOEYR MD DR: UDAY/radha JOB#: [id number] / [id number]
--- NOTE | 2018-11-10 22:17 | PDOC ---
Exam Note: Barrera Note: Please also refer to the separate dictated note~for this date of service dictated separately.~Patient seen individually. Discussed the patient with Nursing staff reviewed the chart.~Reviewed interim history and current functioning. Reviewed vital signs,~Labs/ Radiology~and current medications noted below. Continue current treatment with the changes noted in the dictated addendum note Assessment: Vital Signs: Vital Signs Date Time Temp Pulse Resp B/P (MAP) Pulse Ox O2 Delivery O2 Flow Rate FiO2 11/10/18 16:13 97.5 64 18 97/61 (73) 97 11/09/18 16:18 Room Air 11/06/18 15:31 97.0 I&O Intake and Output 11/10/18 06:59 Intake Total 1320 ml Balance 1320 ml Intake Oral 1320 ml Current Medications: Meds: Current Medications Acetaminophen (Tylenol) 650 mg PRN Q6HRS PRN PO PAIN / TEMP; Start 11/05/18 at 03:45; Status Cancel Multi-Ingredient Ointment (Analgesic [place]) 1 rambo PRN QID PRN TP MUSCLE PAIN; Start 11/05/18 at 03:45 Al Hydroxide/Mg Hydroxide (Mylanta Plus Xs) 15 ml PRN AFTMEALHC PRN PO DYSPEPSIA; Start 11/05/18 at 03:45 Magnesium Hydroxide (Milk Of Magnesia) 2,400 mg PRN QHS PRN PO CONSTIPATION Last administered on 11/07/18at 21:05; Start 11/05/18 at 03:45 Vitamin D (Vitamin D3) 2,000 unit DAILY PO Last administered on 11/10/18 10:31 ; Start 11/05/18 at 09:00 Cyanocobalamin (Vitamin B-12) 1,000 mcg DAILY08 PO Last administered on 10:32; Start 11/05/18 at 08:00 Nitroglycerin (Nitrostat) 0.4 mg PRN Q5MIN PRN SL CHEST PAIN; Start 11/05/18 at 04:15 Tramadol HCl (Ultram) 50 mg PRN Q6HRS PRN PO PAIN Last administered on at 20:30; Start 11/05/18 at 04:15 Acetaminophen (Tylenol) 1,000 mg TIDWMEALS PO Last administered on 11/10/18 16: 15; Start 11/05/18 at 08:00 Aspirin (Aspirin Enteric Coated) 81 mg DAILYWBKFT PO Last administered on 10:31; Start 11/05/18 at 08:00 Baclofen (Lioresal) 5 mg TIDWMEALS PO Last administered on 11/10/18 16:15; Start 11/05/18 at 08:00 Famotidine (Pepcid) 20 mg DAILY PO Last administered on 11/10/18 10:32; Start 11/05/18 at 09:00 Hydrocortisone (Cortef) 15 mg DAILY16 PO Last administered on 11/10/18 16:13; Start 11/05/18 at 16:00 Hydrocortisone (Cortef) 20 mg DAILYWBKFT PO Last administered on 11/10/18 10:35 ; Start 11/05/18 at 08:00 Polyethylene Glycol (miraLAX) 17 gm DAILY08 PO Last administered on 11/10/18 10 :32; Start 11/05/18 at 08:00 Sodium Bicarbonate 650 mg BID PO Last administered on 11/10/18 19:43; Start 11/05/18 at 09:00 Cyclobenzaprine HCl (Flexeril) 10 mg PRN TID PRN PO MUSCLE SPASMS Last administered on 11/09/18 20:29; Start 11/05/18 at 20:15 Trazodone HCl (Desyrel) 50 mg QHS PO Last administered on 11/10/18 19:43; Start 11/05/18 at 21:00 Trazodone HCl (Desyrel) 50 mg PRN QHS PRN PO INSOMNIA; Start 11/05/18 at 20:30 Ondansetron HCl (Zofran Odt) 4 mg PRN Q4HRS PRN PO NAUSEA/VOMITING; Start at 14:15 Baclofen (Lioresal) 5 mg STK-MED ONCE .ROUTE ; Start 11/05/18 at 09:00; Stop 11/06 at 18:01; Status DC Baclofen (Lioresal) 5 mg STK-MED ONCE .ROUTE ; Start 11/05/18 at 09:00; Stop 11/06 at 18:01; Status DC Baclofen (Lioresal) 5 mg STK-MED ONCE .ROUTE ; Start 11/05/18 at 09:00; Stop 11/06 at 18:01; Status DC Baclofen (Lioresal) 5 mg STK-MED ONCE .ROUTE ; Start 11/06/18 at 09:00; Stop 11/06 at 18:02; Status DC Baclofen (Lioresal) 5 mg STK-MED ONCE .ROUTE ; Start 11/06/18 at 09:00; Stop 11/06 at 18:02; Status DC Baclofen (Lioresal) 5 mg STK-MED ONCE .ROUTE ; Start 11/06/18 at 09:00; Stop 11/06 at 18:02; Status DC Lidocaine (Lidoderm) 1 patch DAILY TD ; Start 11/08/18 at 09:00; Stop 11/08/18 at 09:00; Status DC Miscellaneous (Lidoderm Patch Removal) 1 ea QHS MC Last administered on at 16:20; Start 11/07/18 at 21:00 Lidocaine (Lidoderm) 1 patch DAILY TD Last administered on 11/10/18at 10:34; Start 11/07/18 at 14:30 Fluoxetine HCl (PROzac) 10 mg DAILY PO Last administered on 11/09/18at 09:10; Start 11/09/18 at 09:00; Stop 11/09/18 at 16:56; Status DC Duloxetine HCl (Cymbalta) 30 mg DAILY PO Last administered on 11/10/18at 10:31; Start 11/10/18 at 09:00; Stop 11/13/18 at 12:00 Duloxetine HCl (Cymbalta) 40 mg DAILY PO ; Start 11/14/18 at 09:00 Active Scripts Active Reported Tramadol Hcl (Tramadol HCl) 50 Mg Tablet 50 Mg PO PRN Q6HRS PRN NITROGLYCERIN SubLingual (Nitroglycerin) 0.4 Mg Tab.subl 0.4 Mg SL PRN Q5MIN PRN Vitamin D3 (Cholecalciferol (Vitamin D3)) 1,000 Unit Tablet 2,000 Unit PO DAILY Vitamin B-12 (Cyanocobalamin (Vitamin B-12)) 1,000 Mcg Tablet 1,000 Mcg PO DAILY08 Sodium Bicarbonate 650 Mg Tablet 1 Tab PO BID Miralax (Polyethylene Glycol 3350) 17 Gm Powd.pack 17 Gm PO DAILY08 Hydrocortisone 20 Mg Tablet 20 Mg PO DAILY08 Hydrocortisone 10 Mg Tablet 15 Mg PO DAILY16 Famotidine 10 Mg Tablet 10 Mg PO DAILY Baclofen 10 Mg Tablet 5 Mg PO TID AT 04/20/2000 Acetaminophen 500 Mg Tablet 1,000 Mg PO TIDWMEALS Aspirin Ec (Aspirin) 81 Mg Tablet. 81 Mg PO DAILY I have reviewed the current psychotropics carefully including drug interactions. Risk benefit ratio favors no change other than as noted in my dictated progress note. Diagnosis: Problems: (1) Anxiety disorder (2) Mild cognitive impairment (3) Major depressive disorder, recurrent episode (4) Impulse control disorder RON BOYER MD Nov 10, 2018 22:17
--- NOTE | 2018-11-11 00:15 | NUR ---
Pt withdrawn this evening, spending time in his room and the hallway. Compliant with medications and assessment. Denies SI.
[2018-11-11 06:02] VITALS: BP 104/65
[2018-11-11] MEDS: BACLOFEN 10 MG TABLET PO SCH ×3 (08:00→16:56)
--- NOTE | 2018-11-11 09:20 | NUR ---
WEEKLY ACTIVITY THERAPY NOTE Date of Admission: 11/05/2018 Date of AT Assessment: 11/08/2018 Goal aimed: to increase engagement Initial goal:Pt. will participate in at least two individual activities per week. Weekly progress towards goal: did not meet Group participation level: zero Behaviors observed: enjoys ice cream, no interest in groups, use of pocket talker for communication, stays in room, alone most of the time. Plan: no change to goal
[2018-11-11] MEDS: SODIUM BICARBONATE 650 MG TABLET PO SCH ×2 (09:23→19:36)
[2018-11-11] MEDS: ASPIRIN ENTERIC COATED 81 MG TABLET.DR. PO SCH (09:23)
[2018-11-11] MEDS: FAMOTIDINE 20 MG TABLET PO SCH (09:23)
[2018-11-11] MEDS: CYANOCOBALAMIN (VITAMIN B-12) 1,000 MCG TABLET. PO SCH (09:23)
[2018-11-11] MEDS: DULoxetine HCL 30 MG CAPSULE.DR PO SCH (09:24)
[2018-11-11] MEDS: CHOLECALCIFEROL (VITAMIN D3) 1,000 UNIT TABLET PO SCH (09:24)
[2018-11-11] MEDS: POLYETHYLENE GLYCOL 3350 17 GM PACKET. PO SCH (09:24)
[2018-11-11] MEDS: LIDOCAINE (700MG/PATCH) PATCH. TD SCH (09:24)
[2018-11-11] MEDS: ACETAMINOPHEN 500 MG TABLET PO SCH ×3 (09:24→16:55)
[2018-11-11] MEDS: HYDROCORTISONE 10 MG TABLET PO SCH ×2 (09:25→16:56)
--- NOTE | 2018-11-11 09:42 | NUR ---
WEEKLY NOTE: Pt niece, Monika, participated in tx team via telephone. Pt is denying any SI and is not having any behaviors. He is calm and cooperative with staff, but is withdrawn from peers. Pt tends to brooks around his room, as he roommate tends to sleep in his bed. Pt is eating 80% of meals and sleeping roughly 7 hours of sleep. Pt is on Cymbalta and will increase in a few days. Pt will return to [facility] with outpt services through the [facility] for his psychiatry appointments.
--- NOTE | 2018-11-11 10:02 | NUR ---
Behavior Intervention Response and Plan: BIRP Note: Behavior: Assumed Care of patient, patient located in Patient Room at shift change. Patient exhibited the following behavior Calm, Cooperative, Withdrawn. Brief assessment on rounds of vital signs, medication needs, lab studies, and pain. Treatment plan problems . Intervention: Patient assessed and the following interventions initiated safety checks 15 Minute Checks Personal Alarm in place , Cognitive Assessment , Head to toe Assessment. Response: After interactions and interventions patient responded in the following manner, Calm , Withdrawn ,Compliant. Continue to assess behaviors and condition will continue to monitor throughout the shift as needed. Patient educated on ADL's, and hand hygiene. 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 Continue to assess patient for changes in above assessment. Monitor for medication needs, pain, and safety concerns. Hourly rounding performed to ensure safe environment.
--- NOTE | 2018-11-11 13:52 | NUR ---
Call placed to MARCE Mann at [facility] to provide update. Faxed recent health care notes for review. Informed Mackenzie that next concurrent review is due with Dakotah's insurance company on 11/12/18 and that this worker will coordinate discharge planning according to continued insurance coverage, possibly this weekend or early next week. bimal Frank, participated in team meeting on this date. Monika works during the day so would not be available to transport Dakotah to follow up psychiatric appointments. Dakotah does have acces to transport thru his [facility] insurance and [facility].
[2018-11-11 16:23] VITALS: BP 113/76
--- NOTE | 2018-11-11 16:46 | NUR ---
Wound care: Patient seen per wound care consult. See wound assessment. Patient has large scab to right lateral ankle likely due from wheelchair per RN. Wound cleansed, assessed, and measured. Recommendations for skin prep and foam dressing for protection. Wound is reddened and tender to touch. Dressing applied and patient tolerated well. No other wounds noted upon complete head to toe assessment, just multiple scabbed areas. Dressing change instructions left in patient's folder to assess wound to make sure it does open. RN at bedside with WCRN's. Will follow up with patient to reassess on 11/16/18.
--- NOTE | 2018-11-11 17:56 | NUR ---
Pt had a good day today he is coming out of his room more with encouragement from staff. Patient withdrawn to self, soft spoken sometimes hard to understand, patient up to dining room for all meals eats all of his food and participated in group today. Patient in good spirits he denies SI/HI.
[2018-11-11] MEDS: traZODone 50 MG TABLET. PO SCH (19:36)
[2018-11-11] MEDS: PATCH REMOVAL. MC SCH (19:36)
--- NOTE | 2018-11-11 22:11 | PDOC ---
Exam Note: Barrera Note: Please also refer to the separate dictated note~for this date of service dictated separately.~Patient seen individually. Discussed the patient with Nursing staff reviewed the chart.~Reviewed interim history and current functioning. Reviewed vital signs,~Labs/ Radiology~and current medications noted below. Continue current treatment with the changes noted in the dictated addendum note Assessment: Vital Signs: Vital Signs Date Time Temp Pulse Resp B/P (MAP) Pulse Ox O2 Delivery O2 Flow Rate FiO2 11/11/18 16:23 97.5 86 17 113/76 (88) 100 Room Air 11/06/18 15:31 97.0 I&O Intake and Output 11/11/18 06:59 Intake Total 1560 ml Balance 1560 ml Intake Oral 1560 ml # Voids 1 # Bowel Movements 1 Current Medications: Meds: Current Medications Acetaminophen (Tylenol) 650 mg PRN Q6HRS PRN PO PAIN / TEMP; Start 11/05/18 at 03:45; Status Cancel Multi-Ingredient Ointment (Analgesic [place]) 1 rambo PRN QID PRN TP MUSCLE PAIN; Start 11/05/18 at 03:45 Al Hydroxide/Mg Hydroxide (Mylanta Plus Xs) 15 ml PRN AFTMEALHC PRN PO DYSPEPSIA; Start 11/05/18 at 03:45 Magnesium Hydroxide (Milk Of Magnesia) 2,400 mg PRN QHS PRN PO CONSTIPATION Last administered on 11/07/18at 21:05; Start 11/05/18 at 03:45 Vitamin D (Vitamin D3) 2,000 unit DAILY PO Last administered on 11/11/18at 09:24 ; Start 11/05/18 at 09:00 Cyanocobalamin (Vitamin B-12) 1,000 mcg DAILY08 PO Last administered on 09:23; Start 11/05/18 at 08:00 Nitroglycerin (Nitrostat) 0.4 mg PRN Q5MIN PRN SL CHEST PAIN; Start 11/05/18 at 04:15 Tramadol HCl (Ultram) 50 mg PRN Q6HRS PRN PO PAIN Last administered on 20:30; Start 11/05/18 at 04:15 Acetaminophen (Tylenol) 1,000 mg TIDWMEALS PO Last administered on 11/11/18 16: 55; Start 11/05/18 at 08:00 Aspirin (Aspirin Enteric Coated) 81 mg DAILYWBKFT PO Last administered on 09:23; Start 11/05/18 at 08:00 Baclofen (Lioresal) 5 mg TIDWMEALS PO Last administered on 11/11/18 16:56; Start 11/05/18 at 08:00 Famotidine (Pepcid) 20 mg DAILY PO Last administered on 11/11/18 09:23; Start 11/05/18 at 09:00 Hydrocortisone (Cortef) 15 mg DAILY16 PO Last administered on 11/11/18 16:56; Start 11/05/18 at 16:00 Hydrocortisone (Cortef) 20 mg DAILYWBKFT PO Last administered on 11/11/18 09:25 ; Start 11/05/18 at 08:00 Polyethylene Glycol (miraLAX) 17 gm DAILY08 PO Last administered on 11/11/18 09 :24; Start 11/05/18 at 08:00 Sodium Bicarbonate 650 mg BID PO Last administered on 11/11/18 19:36; Start 11/05/18 at 09:00 Cyclobenzaprine HCl (Flexeril) 10 mg PRN TID PRN PO MUSCLE SPASMS Last administered on 11/09/18 20:29; Start 11/05/18 at 20:15 Trazodone HCl (Desyrel) 50 mg QHS PO Last administered on 11/11/18 19:36; Start 11/05/18 at 21:00 Trazodone HCl (Desyrel) 50 mg PRN QHS PRN PO INSOMNIA; Start 11/05/18 at 20:30 Ondansetron HCl (Zofran Odt) 4 mg PRN Q4HRS PRN PO NAUSEA/VOMITING; Start at 14:15 Baclofen (Lioresal) 5 mg STK-MED ONCE .ROUTE ; Start 11/05/18 at 09:00; Stop 11/06 at 18:01; Status DC Baclofen (Lioresal) 5 mg STK-MED ONCE .ROUTE ; Start 11/05/18 at 09:00; Stop 11/06 at 18:01; Status DC Baclofen (Lioresal) 5 mg STK-MED ONCE .ROUTE ; Start 11/05/18 at 09:00; Stop 11/06 at 18:01; Status DC Baclofen (Lioresal) 5 mg STK-MED ONCE .ROUTE ; Start 11/06/18 at 09:00; Stop 11/06 at 18:02; Status DC Baclofen (Lioresal) 5 mg STK-MED ONCE .ROUTE ; Start 11/06/18 at 09:00; Stop 11/06 at 18:02; Status DC Baclofen (Lioresal) 5 mg STK-MED ONCE .ROUTE ; Start 11/06/18 at 09:00; Stop 11/06 at 18:02; Status DC Lidocaine (Lidoderm) 1 patch DAILY TD ; Start 11/08/18 at 09:00; Stop 11/08/18 at 09:00; Status DC Miscellaneous (Lidoderm Patch Removal) 1 ea QHS MC Last administered on at 19:36; Start 11/07/18 at 21:00 Lidocaine (Lidoderm) 1 patch DAILY TD Last administered on 11/11/18at 09:24; Start 11/07/18 at 14:30 Fluoxetine HCl (PROzac) 10 mg DAILY PO Last administered on 11/09/18at 09:10; Start 11/09/18 at 09:00; Stop 11/09/18 at 16:56; Status DC Duloxetine HCl (Cymbalta) 30 mg DAILY PO Last administered on 11/11/18at 09:24; Start 11/10/18 at 09:00; Stop 11/13/18 at 12:00 Duloxetine HCl (Cymbalta) 40 mg DAILY PO ; Start 11/14/18 at 09:00 Active Scripts Active Reported Tramadol Hcl (Tramadol HCl) 50 Mg Tablet 50 Mg PO PRN Q6HRS PRN NITROGLYCERIN SubLingual (Nitroglycerin) 0.4 Mg Tab.subl 0.4 Mg SL PRN Q5MIN PRN Vitamin D3 (Cholecalciferol (Vitamin D3)) 1,000 Unit Tablet 2,000 Unit PO DAILY Vitamin B-12 (Cyanocobalamin (Vitamin B-12)) 1,000 Mcg Tablet 1,000 Mcg PO DAILY08 Sodium Bicarbonate 650 Mg Tablet 1 Tab PO BID Miralax (Polyethylene Glycol 3350) 17 Gm Powd.pack 17 Gm PO DAILY08 Hydrocortisone 20 Mg Tablet 20 Mg PO DAILY08 Hydrocortisone 10 Mg Tablet 15 Mg PO DAILY16 Famotidine 10 Mg Tablet 10 Mg PO DAILY Baclofen 10 Mg Tablet 5 Mg PO TID AT 04/20/2000 Acetaminophen 500 Mg Tablet 1,000 Mg PO TIDWMEALS Aspirin Ec (Aspirin) 81 Mg Tablet. 81 Mg PO DAILY I have reviewed the current psychotropics carefully including drug interactions. Risk benefit ratio favors no change other than as noted in my dictated progress note. Diagnosis: Problems: (1) Anxiety disorder (2) Mild cognitive impairment (3) Major depressive disorder, recurrent episode (4) Impulse control disorder RON BOYER MD Nov 11, 2018 22:11
--- NOTE | 2018-11-12 00:03 | NUR ---
Pt located in dayroom for the evening. Pt pleasant and compliant with whole medications.
[2018-11-12 06:36] VITALS: BP 112/65
[2018-11-12] MEDS: POLYETHYLENE GLYCOL 3350 17 GM PACKET. PO SCH (08:45)
[2018-11-12] MEDS: CHOLECALCIFEROL (VITAMIN D3) 1,000 UNIT TABLET PO SCH (08:46)
[2018-11-12] MEDS: LIDOCAINE (700MG/PATCH) PATCH. TD SCH (08:46)
[2018-11-12] MEDS: ASPIRIN ENTERIC COATED 81 MG TABLET.DR. PO SCH (08:46)
[2018-11-12] MEDS: BACLOFEN 10 MG TABLET PO SCH ×3 (08:47→17:50)
[2018-11-12] MEDS: CYANOCOBALAMIN (VITAMIN B-12) 1,000 MCG TABLET. PO SCH (08:47)
[2018-11-12] MEDS: HYDROCORTISONE 10 MG TABLET PO SCH ×2 (08:47→17:50)
[2018-11-12] MEDS: DULoxetine HCL 30 MG CAPSULE.DR PO SCH (08:47)
[2018-11-12] MEDS: FAMOTIDINE 20 MG TABLET PO SCH (08:47)
[2018-11-12] MEDS: ACETAMINOPHEN 500 MG TABLET PO SCH ×3 (08:47→17:50)
[2018-11-12] MEDS: SODIUM BICARBONATE 650 MG TABLET PO SCH ×2 (08:47→19:56)
--- NOTE | 2018-11-12 13:55 | NUR ---
Concurrent review completed with Stephania from [facility] insurance. Dakotah is authorized thru 11/14 (authorization number [id number]), discharge to [facility] on 11/15/18. Call placed to MARCE Mann at [place], to coordinate d/c planning. She provided [facility] transportation contact number at [phone]. [facility] transport instructed this worker to call back on Thursday as they do same day transport for hospital discharges. Call placed to Juana, Behavioral Health Advocate at [facility], to confirm arrangements for follow up for out patient therapy and medication management. Left detailed message, awaiting return phone call. Call placed to bimal Silva/AIDEN, to notify of discharge on 11/15/18. Call placed to [facility] intake department at [phone] with intent to schedule an appointment for follow up. Left message, awaiting return phone call.
--- NOTE | 2018-11-12 14:20 | NUR ---
[facility] Social Work Discharge Planning Form Patient Name ELVIA HUMPHRIES Admit Date: 11/05/2018 DISCHARGE PLAN Discharge Destination: [facility] on 11/15/18 Care Assessment: Not required in [facility] Transportation: Will arrange transport thru [facility] medicaid on 11/15/18, they provide same day discharge transport. Special Instructions/Notes: Upon Elvia's return to [facility], please call [facility] intake line at [phone] to schedule an intake appointment for medication management and case management services. [facility] is located at [address] [address]. DISCHARGE TO FACILITY Facility: [facility] Address: [address] [place] [address] Contact Name: MARCE Mann, cell number [phone] PCP: Dr. Guadalupe [phone](phone) [phone](fax) Psychiatrist: [facility] [phone] (phone) [phone] (fax)
--- NOTE | 2018-11-12 14:48 | NUR ---
Juana, [facility] Behavioral Health Advocate, called this worker back and provided in home therapist contact information. Call placed to Sonia Ulrich LPC, at [phone] who stated her case load is full at this time. Sonia suggested that this worker contact the main office of [facility] at [phone] to see if there is an alternate counselor available to see Dakotah. Call placed to Jason at [phone] and left message. Awaiting return phone call.
--- NOTE | 2018-11-12 15:06 | NUR ---
Reviewed with Dakotah about his insurance coverage and plan to discharge to [facility] on 11/15/18. Dakotah indicated that he was in agreement about discharge and felt prepared to return to his [facility] community. He had not other questions at this time.
--- NOTE | 2018-11-12 15:50 | NUR ---
Spoke to Jason at [facility], referral completed. Jason will call MARCE Mann at [facility], to arrange appointment time to see Dakotah in his apartment for counseling services.
[2018-11-12 16:19] VITALS: BP 115/69
--- NOTE | 2018-11-12 16:34 | NUR ---
Patient calm, cooperative and compliant with meds. Sits in doorway to his room or sleeps. Comes out for meals and has good appetite.
[2018-11-12] MEDS: PATCH REMOVAL. MC SCH (19:54)
[2018-11-12] MEDS: traZODone 50 MG TABLET. PO SCH (19:56)
--- NOTE | 2018-11-12 20:00 | NUR ---
Behavior Intervention Response and Plan: BIRP Note: Behavior: Assumed Care of patient, patient located in Day Room at shift change. Patient exhibited the following behavior Interactive, Calm, Disorganized. Brief assessment on rounds of vital signs, medication needs, lab studies, and pain. Treatment plan problems 1. Intervention: Patient assessed and the following interventions initiated safety checks 15 Minute Checks Cognitive Assessment , Head to toe Assessment , Call stoddard in reach. Response: After interactions and interventions patient responded in the following manner, Interactive , Calm ,Disorganized. Continue to assess behaviors and condition will continue to monitor throughout the shift as needed. Patient educated on ADL's, and hand hygiene. Plan: Continue to monitor Master Treatment Plan for patient's progress toward short term goals of Decreased Agitation, Decreased Anxiety, intermediate frame tender goals to return to previous living setting vs placement. Continue to assess patient for changes in above assessment. Monitor for medication needs, pain, and safety concerns. Hourly rounding performed to ensure safe environment.
--- NOTE | 2018-11-12 20:07 | PN ---
DATE: 11/10/2018 PSYCHIATRIC PROGRESS NOTE This late entry 11/10/2018 covers elements not covered in my initial note. SUBJECTIVE: I met with the patient in the evening. The patient slept 7-1/4 hours previous night. He has been withdrawn, did come out of his room for some time. Extremely hard of hearing as I met with him. Impaired ambulation, in wheelchair. REVIEW OF SYSTEMS: No CV, , pulmonary, eye system symptoms on review. MENTAL STATUS EXAM: I met with him in the hallway, oriented to himself and situation. Speech, high pitched, has some latency, rapid at times. Abstraction fair, computation impaired, language function intact, attention span short. Mood and affect somewhat withdrawn. LABORATORY DATA: Reviewed. IMPRESSION: Major depressive disorder, recurrent; anxiety disorder, unspecified. PLAN: Increase Cymbalta to 40 mg a day after he has been on 30 for 3 days. Continue trazodone. Rest unchanged for now. RON BOYER MD DR: UDAY/radha JOB#: [id number] / [id number]
--- NOTE | 2018-11-12 20:10 | PN ---
DATE: 11/11/2018 PSYCHIATRIC PROGRESS NOTE This late entry 11/11/2018 covers elements not covered in my initial note. SUBJECTIVE: I met with the patient in the evening and staffed at a treatment team meeting with the entire team earlier in the day and the patient's niece, Monika, attended. We discussed his diagnosis, progress, disposition plan, psychotropic medications, answered Monika's questions. He denies suicidal ideation, cooperative, spends much time in his room. Appetite 80%, slept 7-1/2 hours. We discussed outpatient followup at the [facility]. REVIEW OF SYSTEMS: Hard of hearing, impaired ambulation in a wheelchair. No CV, , pulmonary, eye system symptoms on review. MENTAL STATUS EXAM: Oriented to himself and situation. Speech coherent, can be rapid at times, somewhat high pitched, abstraction fair, computation impaired, language function intact. Mood and affect still depressed, anxious, but improved. No active suicidal ideation. LABORATORY DATA: Reviewed. IMPRESSION: Unchanged from initial note. PLAN: No change from initial note. MAN Kristine BOYER MD DR: UDAY/radha JOB#: [id number] / [id number]
--- NOTE | 2018-11-12 22:30 | PDOC ---
Exam Note: Barrera Note: Please also refer to the separate dictated note~for this date of service dictated separately.~Patient seen individually. Discussed the patient with Nursing staff reviewed the chart.~Reviewed interim history and current functioning. Reviewed vital signs,~Labs/ Radiology~and current medications noted below. Continue current treatment with the changes noted in the dictated addendum note Assessment: Vital Signs: Vital Signs Date Time Temp Pulse Resp B/P (MAP) Pulse Ox O2 Delivery O2 Flow Rate FiO2 11/12/18 16:19 96.6 69 18 115/69 (84) 96 Room Air 11/06/18 15:31 97.0 I&O Intake and Output 11/12/18 06:59 Intake Total 1200 ml Balance 1200 ml Intake Oral 1200 ml Current Medications: Meds: Current Medications Acetaminophen (Tylenol) 650 mg PRN Q6HRS PRN PO PAIN / TEMP; Start 11/05/18 at 03:45; Status Cancel Multi-Ingredient Ointment (Analgesic [place]) 1 rambo PRN QID PRN TP MUSCLE PAIN; Start 11/05/18 at 03:45 Al Hydroxide/Mg Hydroxide (Mylanta Plus Xs) 15 ml PRN AFTMEALHC PRN PO DYSPEPSIA; Start 11/05/18 at 03:45 Magnesium Hydroxide (Milk Of Magnesia) 2,400 mg PRN QHS PRN PO CONSTIPATION Last administered on 11/07/18at 21:05; Start 11/05/18 at 03:45 Vitamin D (Vitamin D3) 2,000 unit DAILY PO Last administered on 11/12/18at 08:46 ; Start 11/05/18 at 09:00 Cyanocobalamin (Vitamin B-12) 1,000 mcg DAILY08 PO Last administered on at 08:47; Start 11/05/18 at 08:00 Nitroglycerin (Nitrostat) 0.4 mg PRN Q5MIN PRN SL CHEST PAIN; Start 11/05/18 at 04:15 Tramadol HCl (Ultram) 50 mg PRN Q6HRS PRN PO PAIN Last administered on at 20:30; Start 11/05/18 at 04:15 Acetaminophen (Tylenol) 1,000 mg TIDWMEALS PO Last administered on 11/12/18at 17: 50; Start 11/05/18 at 08:00 Aspirin (Aspirin Enteric Coated) 81 mg DAILYWBKFT PO Last administered on 08:46; Start 11/05/18 at 08:00 Baclofen (Lioresal) 5 mg TIDWMEALS PO Last administered on 11/12/18 17:50; Start 11/05/18 at 08:00 Famotidine (Pepcid) 20 mg DAILY PO Last administered on 11/12/18 08:47; Start 11/05/18 at 09:00 Hydrocortisone (Cortef) 15 mg DAILY16 PO Last administered on 11/12/18 17:50; Start 11/05/18 at 16:00 Hydrocortisone (Cortef) 20 mg DAILYWBKFT PO Last administered on 11/12/18 08:47 ; Start 11/05/18 at 08:00 Polyethylene Glycol (miraLAX) 17 gm DAILY08 PO Last administered on 11/12/18 08 :45; Start 11/05/18 at 08:00 Sodium Bicarbonate 650 mg BID PO Last administered on 11/12/18 19:56; Start 11/05/18 at 09:00 Cyclobenzaprine HCl (Flexeril) 10 mg PRN TID PRN PO MUSCLE SPASMS Last administered on 11/09/18 20:29; Start 11/05/18 at 20:15 Trazodone HCl (Desyrel) 50 mg QHS PO Last administered on 11/12/18 19:56; Start 11/05/18 at 21:00 Trazodone HCl (Desyrel) 50 mg PRN QHS PRN PO INSOMNIA; Start 11/05/18 at 20:30 Ondansetron HCl (Zofran Odt) 4 mg PRN Q4HRS PRN PO NAUSEA/VOMITING; Start at 14:15 Baclofen (Lioresal) 5 mg STK-MED ONCE .ROUTE ; Start 11/05/18 at 09:00; Stop 11/06 at 18:01; Status DC Baclofen (Lioresal) 5 mg STK-MED ONCE .ROUTE ; Start 11/05/18 at 09:00; Stop 11/06 at 18:01; Status DC Baclofen (Lioresal) 5 mg STK-MED ONCE .ROUTE ; Start 11/05/18 at 09:00; Stop 11/06 at 18:01; Status DC Baclofen (Lioresal) 5 mg STK-MED ONCE .ROUTE ; Start 11/06/18 at 09:00; Stop 11/06 at 18:02; Status DC Baclofen (Lioresal) 5 mg STK-MED ONCE .ROUTE ; Start 11/06/18 at 09:00; Stop 11/06 at 18:02; Status DC Baclofen (Lioresal) 5 mg STK-MED ONCE .ROUTE ; Start 11/06/18 at 09:00; Stop 11/06 at 18:02; Status DC Lidocaine (Lidoderm) 1 patch DAILY TD ; Start 11/08/18 at 09:00; Stop 11/08/18 at 09:00; Status DC Miscellaneous (Lidoderm Patch Removal) 1 ea QHS MC Last administered on at 19:54; Start 11/07/18 at 21:00 Lidocaine (Lidoderm) 1 patch DAILY TD Last administered on 11/12/18at 08:46; Start 11/07/18 at 14:30 Fluoxetine HCl (PROzac) 10 mg DAILY PO Last administered on 11/09/18at 09:10; Start 11/09/18 at 09:00; Stop 11/09/18 at 16:56; Status DC Duloxetine HCl (Cymbalta) 30 mg DAILY PO Last administered on 11/12/18at 08:47; Start 11/10/18 at 09:00; Stop 11/13/18 at 12:00 Duloxetine HCl (Cymbalta) 40 mg DAILY PO ; Start 11/14/18 at 09:00 Active Scripts Active Reported Tramadol Hcl (Tramadol HCl) 50 Mg Tablet 50 Mg PO PRN Q6HRS PRN NITROGLYCERIN SubLingual (Nitroglycerin) 0.4 Mg Tab.subl 0.4 Mg SL PRN Q5MIN PRN Vitamin D3 (Cholecalciferol (Vitamin D3)) 1,000 Unit Tablet 2,000 Unit PO DAILY Vitamin B-12 (Cyanocobalamin (Vitamin B-12)) 1,000 Mcg Tablet 1,000 Mcg PO DAILY08 Sodium Bicarbonate 650 Mg Tablet 1 Tab PO BID Miralax (Polyethylene Glycol 3350) 17 Gm Powd.pack 17 Gm PO DAILY08 Hydrocortisone 20 Mg Tablet 20 Mg PO DAILY08 Hydrocortisone 10 Mg Tablet 15 Mg PO DAILY16 Famotidine 10 Mg Tablet 10 Mg PO DAILY Baclofen 10 Mg Tablet 5 Mg PO TID AT 04/20/2000 Acetaminophen 500 Mg Tablet 1,000 Mg PO TIDWMEALS Aspirin Ec (Aspirin) 81 Mg Tablet. 81 Mg PO DAILY I have reviewed the current psychotropics carefully including drug interactions. Risk benefit ratio favors no change other than as noted in my dictated progress note. Diagnosis: Problems: (1) Anxiety disorder (2) Mild cognitive impairment (3) Major depressive disorder, recurrent episode (4) Impulse control disorder RON BOYER MD Nov 12, 2018 22:30
[2018-11-13 05:43] VITALS: BP 128/73
[2018-11-13] MEDS: CYANOCOBALAMIN (VITAMIN B-12) 1,000 MCG TABLET. PO SCH (08:22)
[2018-11-13] MEDS: SODIUM BICARBONATE 650 MG TABLET PO SCH ×2 (08:23→19:57)
[2018-11-13] MEDS: CHOLECALCIFEROL (VITAMIN D3) 1,000 UNIT TABLET PO SCH (08:23)
[2018-11-13] MEDS: POLYETHYLENE GLYCOL 3350 17 GM PACKET. PO SCH (08:23)
[2018-11-13] MEDS: FAMOTIDINE 20 MG TABLET PO SCH (08:23)
[2018-11-13] MEDS: ASPIRIN ENTERIC COATED 81 MG TABLET.DR. PO SCH (08:23)
[2018-11-13] MEDS: HYDROCORTISONE 10 MG TABLET PO SCH ×2 (08:23→16:12)
[2018-11-13] MEDS: ACETAMINOPHEN 500 MG TABLET PO SCH ×3 (08:23→16:12)
[2018-11-13] MEDS: LIDOCAINE (700MG/PATCH) PATCH. TD SCH (08:23)
[2018-11-13] MEDS: DULoxetine HCL 30 MG CAPSULE.DR PO SCH (08:23)
[2018-11-13] MEDS: BACLOFEN 10 MG TABLET PO SCH ×3 (08:24→16:13)
--- NOTE | 2018-11-13 09:49 | NUR ---
Patient morning pretty good, patient med compliant ate all of breakfast in the dining room, then went back to his room where he wanted to rest for a little bit. I advised after lunch we would be going into the day room to visit with others and participate in group he agreed.
--- NOTE | 2018-11-13 10:49 | NUR ---
Behavior Intervention Response and Plan: BIRP Note: Behavior: Assumed Care of patient, patient located in Dining Room at shift change. Patient exhibited the following behavior Calm, Cooperative, Compliant. Brief assessment on rounds of vital signs, medication needs, lab studies, and pain. Treatment plan problems . Intervention: Patient assessed and the following interventions initiated safety checks 15 Minute Checks Personal Alarm in place , Cognitive Assessment , Head to toe Assessment. Response: After interactions and interventions patient responded in the following manner, Calm , Cooperative ,Compliant. Continue to assess behaviors and condition will continue to monitor throughout the shift as needed. Patient educated on ADL's, and hand hygiene. 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 Continue to assess patient for changes in above assessment. Monitor for medication needs, pain, and safety concerns. Hourly rounding performed to ensure safe environment.
[2018-11-13 15:52] VITALS: BP 102/65
[2018-11-13] MEDS: traZODone 50 MG TABLET. PO SCH (19:56)
[2018-11-13] MEDS: PATCH REMOVAL. MC SCH (19:56)
--- NOTE | 2018-11-13 20:00 | NUR ---
Behavior Intervention Response and Plan: BIRP Note: Behavior: Assumed Care of patient, patient located in Day Room at shift change. Patient exhibited the following behavior Interactive, Calm, Disorganized. Brief assessment on rounds of vital signs, medication needs, lab studies, and pain. Treatment plan problems 1. Intervention: Patient assessed and the following interventions initiated safety checks 15 Minute Checks Cognitive Assessment , Head to toe Assessment , Medications. Response: After interactions and interventions patient responded in the following manner, Interactive , Calm ,Disorganized. Continue to assess behaviors and condition will continue to monitor throughout the shift as needed. Patient educated on ADL's, and hand hygiene. Plan: Continue to monitor Master Treatment Plan for patient's progress toward short term goals of Decreased Agitation, Decreased Anxiety, senior living goals to return to previous living setting vs placement. Continue to assess patient for changes in above assessment. Monitor for medication needs, pain, and safety concerns. Hourly rounding performed to ensure safe environment.
--- NOTE | 2018-11-13 23:10 | PN ---
DATE: 11/13/2018 SUBJECTIVE: The patient was seen today, met with the staff, chart reviewed. The patient currently on wheelchair, no falls. Staff reports no major behavior problems. The patient apparently has not made any suicidal statements lately. OBSERVATION: VITAL SIGNS: Temperature 97.6, blood pressure 128/73, pulse 76, respiration 18, O2 sat 98%. Slept about 8 hours last night. His appetite is good. The patient is not having any side effects to the medications. MEDICATIONS: Include Cymbalta 40 mg daily, trazodone 50 mg at night. The patient is also on tramadol, baclofen and aspirin. The patient is not having any side effects to the medications. LABORATORY DATA: The patient's lab reviewed. The patient has elevated triglycerides, cholesterol, LDL. ASSESSMENT: 1. Major depressive disorder, recurrent with suicidal ideation. 2. Anxiety disorder, unspecified. 3. Cognitive disorder, mild. PLAN: To continue with the current treatment. ATIF KING MD DR: TAMMY/radha JOB#: [id number] / [id number]
[2018-11-14 06:11] VITALS: BP 98/62
[2018-11-14] MEDS: LIDOCAINE (700MG/PATCH) PATCH. TD SCH (08:37)
[2018-11-14] MEDS: ASPIRIN ENTERIC COATED 81 MG TABLET.DR. PO SCH (08:37)
[2018-11-14] MEDS: SODIUM BICARBONATE 650 MG TABLET PO SCH ×2 (08:37→20:43)
[2018-11-14] MEDS: POLYETHYLENE GLYCOL 3350 17 GM PACKET. PO SCH (08:37)
[2018-11-14] MEDS: FAMOTIDINE 20 MG TABLET PO SCH (08:37)
[2018-11-14] MEDS: DULoxetine HCL 20 MG CAPSULE.DR PO SCH (08:37)
[2018-11-14] MEDS: CYANOCOBALAMIN (VITAMIN B-12) 1,000 MCG TABLET. PO SCH (08:37)
[2018-11-14] MEDS: CHOLECALCIFEROL (VITAMIN D3) 1,000 UNIT TABLET PO SCH (08:38)
[2018-11-14] MEDS: HYDROCORTISONE 10 MG TABLET PO SCH ×2 (08:38→16:37)
[2018-11-14] MEDS: ACETAMINOPHEN 500 MG TABLET PO SCH ×3 (08:38→16:37)
[2018-11-14] MEDS: BACLOFEN 10 MG TABLET PO SCH ×3 (08:38→16:37)
--- NOTE | 2018-11-14 11:11 | NUR ---
Behavior Intervention Response and Plan: BIRP Note: Behavior: Assumed Care of patient, patient located in Dining Room at shift change. Patient exhibited the following behavior Calm, Compliant, Cooperative. Brief assessment on rounds of vital signs, medication needs, lab studies, and pain. Treatment plan problems . Intervention: Patient assessed and the following interventions initiated safety checks 15 Minute Checks Personal Alarm in place , Cognitive Assessment , Head to toe Assessment. Response: After interactions and interventions patient responded in the following manner, Calm , Cooperative ,Compliant. Continue to assess behaviors and condition will continue to monitor throughout the shift as needed. Patient educated on ADL's, and hand hygiene. 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 Continue to assess patient for changes in above assessment. Monitor for medication needs, pain, and safety concerns. Hourly rounding performed to ensure safe environment.
[2018-11-14 16:11] VITALS: BP 100/59
--- NOTE | 2018-11-14 17:40 | NUR ---
Patient had a good day no behaviors to report patient up to the dining room table for all meals patient med compliant and cooperative with cares. Patient is having difficulty making it to the bathroom in a timely manner to void and becomes incontinent of urine when unable to make it in time. Gave patient a new gown and a new brief.
[2018-11-14] MEDS: PATCH REMOVAL. MC SCH (20:43)
[2018-11-14] MEDS: traZODone 50 MG TABLET. PO SCH (20:43)
--- NOTE | 2018-11-14 23:19 | PN ---
DATE: 11/12/2018 PSYCHIATRIC PROGRESS NOTE This late entry 11/12/2018 covers elements not covered in my initial note. SUBJECTIVE: I met with the patient in the evening. The patient slept 6-3/4 hours previous night. He has been doing better, frequently sits at the door, otherwise cooperative. He remains hard of hearing. REVIEW OF SYSTEMS: Impaired ambulation, in wheelchair. No CV, , pulmonary, eye system symptoms on review. MENTAL STATUS EXAM: Oriented to himself and situation. Speech has some latency, coherent. Abstraction fair, computation impaired, language function intact, attention span short. Mood and affect, somewhat anxious, at times, withdrawn. LABORATORY DATA: Reviewed. IMPRESSION: Unchanged from initial note. PLAN: No change from initial note. MAN Kristine BOYER MD DR: UDAY/radha JOB#: [id number] / [id number]
--- NOTE | 2018-11-14 23:31 | NUR ---
Patient calm and cooperative. Compliant with medications taken whole. Removed lidoderm patch from lower back. Patient went to bed without any problems. He is scheduled to leave tomorrow.
--- NOTE | 2018-11-15 01:41 | DS ---
DATE OF DISCHARGE: 11/15/2018 DISCHARGE SUMMARY AND PROGRESS NOTE FINAL DIAGNOSES: AXIS I: 1. Major depressive disorder, recurrent with suicidal ideation. 2. Generalized anxiety disorder. 3. Cognitive disorder, mild. AXIS II: None. AXIS III: Storey's disease, gastroesophageal reflux disease, anemia, chronic back pain, also hearing loss. The patient is able to walk, also uses wheelchair. ALLERGIES: THE PATIENT IS ALLERGIC TO PENICILLIN AND ERYTHROMYCIN. REASON FOR ADMISSION: This 73-year-old male was admitted from [facility] and apparently, he was sent to the Emergency Room at [facility] with suicidal ideation and apparently, he had thoughts of breaking light bulb and slitting his throat. HISTORY OF PRESENT ILLNESS: The patient has been a resident at the [facility] for some time and the patient apparently had problems with depression and suicidal thoughts, but no failed attempts. The patient mainly is focused on his mother's and wanting to be with her. The patient also threatened to commit suicide many times, never acted on his plans. HOSPITAL COURSE: The patient had a physical exam, routine lab work including CBC, chem profile, urinalysis, and his RBC count was 3.32, hemoglobin 10.8, HCT 31.9. The patient's triglycerides were 241, VLDL was 48, iron 46. The patient's barium swallow showed severe esophageal dysmotility and x-ray KUB showed moderate colonic stool, no apparent bowel obstruction. The patient was involved in the treatment including individual therapy, group therapy, and activity therapy. The patient was on Cymbalta 40 mg daily, trazodone 50 mg at night and also p.r.n. hydrocortisone 15 mg daily for his adrenal insufficiency, Pepcid 20 mg daily, and also hydrocortisone 20 mg daily, baclofen 5 mg t.i.d., aspirin 81 mg daily, B12 1000 mg daily p.o., tramadol 50 mg q. 6 hours p.r.n. Also, on nitroglycerin 0.4 mg p.r.n. q. 5 minutes sublingually. The patient did fairly well during his stay here, did not present with any major behavior problems. The patient did not have any falls, does use wheelchair. The patient apparently has not made any suicidal attempts in the past week. PLAN: The patient will be discharged back to [facility]. The patient will continue on the medications listed above and the patient will be followed by the psychiatrist there and also his primary care doctor. ATIF KING MD DR: TAMMY/radha JOB#: [id number] / [id number]
[2018-11-15] MEDS ORDERED: CYCL-331 PO (03:35)
[2018-11-15] MEDS ORDERED: MENT113G6 TP (03:37)
[2018-11-15] MEDS ORDERED: LIDO700A39 TP (03:40)
[2018-11-15] MEDS ORDERED: DULO20CA50 PO (03:49)
[2018-11-15] MEDS ORDERED: TRAZ-120 PO ×2 (03:56→03:57)
[2018-11-15] MEDS ORDERED: MAG355OR11 PO (04:05)
[2018-11-15] MEDS ORDERED: MAGN2400 PO (04:07)
[2018-11-15] MEDS ORDERED: ONDA4TAB7 PO (04:15)
[2018-11-15 06:04] VITALS: BP 135/77
[2018-11-15] MEDS: HYDROCORTISONE 10 MG TABLET PO SCH (07:58)
[2018-11-15] MEDS: POLYETHYLENE GLYCOL 3350 17 GM PACKET. PO SCH (07:58)
[2018-11-15] MEDS: CHOLECALCIFEROL (VITAMIN D3) 1,000 UNIT TABLET PO SCH (07:58)
[2018-11-15] MEDS: SODIUM BICARBONATE 650 MG TABLET PO SCH (07:58)
[2018-11-15] MEDS: FAMOTIDINE 20 MG TABLET PO SCH (07:58)
[2018-11-15] MEDS: ASPIRIN ENTERIC COATED 81 MG TABLET.DR. PO SCH (07:58)
[2018-11-15] MEDS: DULoxetine HCL 20 MG CAPSULE.DR PO SCH (07:58)
[2018-11-15] MEDS: BACLOFEN 10 MG TABLET PO SCH ×2 (07:59→11:58)
[2018-11-15] MEDS: CYANOCOBALAMIN (VITAMIN B-12) 1,000 MCG TABLET. PO SCH (07:59)
[2018-11-15] MEDS: ACETAMINOPHEN 500 MG TABLET PO SCH ×2 (07:59→11:58)
[2018-11-15] MEDS: LIDOCAINE (700MG/PATCH) PATCH. TD SCH (07:59)
--- NOTE | 2018-11-15 08:58 | NUR ---
Call placed to Fartun at [facility] [employer] transport. Transport will pick Dakotah up at 1:30pm this afternoon to take him back to [facility]. Transport confirmation number is [id number].
--- NOTE | 2018-11-15 09:21 | NUR ---
Dakotah has an intake appointment scheduled at [facility] on 11/18/18 at 12:45pm.
--- NOTE | 2018-11-15 10:25 | NUR ---
Behavior Intervention Response and Plan: BIRP Note: Behavior: Assumed Care of patient, patient located in Dining Room at shift change. Patient exhibited the following behavior Calm, Compliant, Cooperative. Brief assessment on rounds of vital signs, medication needs, lab studies, and pain. Treatment plan problems . Intervention: Patient assessed and the following interventions initiated safety checks 15 Minute Checks Personal Alarm in place , Cognitive Assessment , Head to toe Assessment. Response: After interactions and interventions patient responded in the following manner, Calm , Compliant ,Withdrawn. Continue to assess behaviors and condition will continue to monitor throughout the shift as needed. Patient educated on ADL's, and hand hygiene. 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 Continue to assess patient for changes in above assessment. Monitor for medication needs, pain, and safety concerns. Hourly rounding performed to ensure safe environment.
--- NOTE | 2018-11-15 10:51 | NUR ---
Per request of [facility] ([place], on this date) field case manager, completed discharge template form and faxed to [facility] pillowcase cleaner along with medication list. D/C form and medication list faxed to [phone].
--- NOTE | 2018-11-15 14:08 | NUR ---
Tobacco Discharge Note [facility] Tobacco Hotline called with patient prior to discharge, YES Tobacco cessation medication listed with current medications for discharge. YES Transition Record was faxed to follow-up provider with the following elements: Reason for admission, procedures, tests, principal diagnosis, pending studies, patient instructions, 30/03 contact information for unit, phone number to obtain pending test results, plan for follow-up care, physician follow-up, advanced directive information, and medication list with dose, duration and instructions. This information was included in the following documents: History and physical, lab results, study results, progress notes, social work planning form, DC instruction form, patient visit summary, and medication reconciliation form. Date & time record faxed:11/15/18 1159 Record faxed to:[facility] Record discussed with/ report given to: Neda (nurse)
== END 2018-11-15 13:45 | DRG 885 ==
LOC: GEROPSY 03:05
PROVIDERS: ADMIT Psychiatry & Neurology Psychiatry; ATTEND Psychiatry & Neurology Psychiatry
DX: F33.9 Major depressive disorder, recurrent, unspecified (principal); R45.851 Suicidal ideations; C95.90 Leukemia, unspecified not having achieved remission; E27.1 Primary adrenocortical insufficiency; F41.9 Anxiety disorder, unspecified; G31.84 Mild cognitive impairment of uncertain or unknown etiology; F63.9 Impulse disorder, unspecified; D64.9 Anemia, unspecified; F09 Unspecified mental disorder due to known physiological condition; F41.1 Generalized anxiety disorder; F60.9 Personality disorder, unspecified; G89.29 Other chronic pain; H91.90 Unspecified hearing loss, unspecified ear; K21.9 Gastro-esophageal reflux disease without esophagitis; K22.4 Dyskinesia of esophagus; Z66 Do not resuscitate; Z79.82 Long term (current) use of aspirin; Z87.891 Personal history of nicotine dependence; Z88.0 Allergy status to penicillin; Z88.8 Allergy status to other drugs, medicaments and biological substances
CPT/HCPCS: 36415; 74018; 74220; 80053; 80061; 82306; 83036; 83540; 83550; 83735; 84436; 84443; 84480; 85025; 86592; 93005